=== PATIENT | male | born 1965 | race Caucasian/White ===

== ENCOUNTER 2017-06-15 10:19 | Outpatient (CLI) | payer MEDICARE, MEDICAID ==
--- NOTE | 2017-06-15 12:56 | Diagnostic Imaging Report ---
Exam: CT examination of the chest HISTORY: Pneumonia and shortness of breath. Total DLP equals 350 CTDI equals 0.0 Findings: Multiple contiguous thin section of the chest were obtained from thoracic outlet to the upper abdomen without the administration of contrast material therefore the study is limited The study demonstrates normal appearance of the great vessels of the neck. Adenopathy is difficult exclude due to lack of contrast material. Tracheostomy tube is noted There is evidence of for a right midlung infiltrate with superimposed pleural effusion. Left basilar atelectasis and small pleural effusion is present. Mediastinal structures midline the adenopathy is difficult to exclude due to lack of contrast material. Bony structures demonstrate no evidence for lytic or blastic changes IMPRESSION : Bilateral pneumonia superimposed effusions predominantly right-sided
== END 2017-06-15 10:49 ==
LOC: RAD 10:19
PROVIDERS: ATTEND General Practice
DX: J18.9 Pneumonia, unspecified organism (principal); J90 Pleural effusion, not elsewhere classified; Z93.0 Tracheostomy status
CPT/HCPCS: 71250-TC

== ENCOUNTER 2017-06-17 17:56 | Inpatient (IN) | payer MEDICARE, MEDICAID ==
--- NOTE | 2017-06-17 18:45 | ED Physician Chart ---
ED Chief Complaint/HPI - Patient Information Date Seen:: 06/17/17 Time Seen:: 18:45 Chief Complaint:: Cough History of Present Illness:: 51 yo male was brought from [facility] to ER for evaluation of cough and congestion with purulent sputum via tracheostomy for a few days. His CXR showed pneumonia and possible TB. Allergies:: Allergies Allergy/AdvReac Type Severity Reaction Status Date / Time No Known Allergies Allergy Verified 06/17/17 18:14 Vitals:: Vital Signs - 8 hr 06/17/17 18:14 Temp 98.8 F HR 85 RR 21 BP 124/73 O2 Sat % 94 ED Past Medical History - Past Medical History Past Medical History: DM, Other (ESPIRATORY FAILURE, SEPSIS, UTI, ABNORMAL POSTURE, MUSCLE WEAKNESS, DYSPHAGIA, CONGNITIVE COMMUNICATION DEFICIT, TRACHEOSTOMY, DYSPHAGIA, GASTROSTOMY, LEFT HEEL ULCER, ULCER RIGHT AND LEFT BUTTOCK, CEREBRAL PALSY, HYPOTHYROIDISM, INTELLECTUAL DISABILITY, HYPERLIPIDEMIA , BPH, NEUROMUSCULAR DYSFUNCTION OF BLADDER, OSTEOPOROSIS) Psychiatricy History: Depression Family Medical History - Family Member Mother History Unknown: Yes ED Septic Shock - <6hrs of presentation: Vital Signs: Vital Signs - 8 hr 06/17/17 18:14 Temp 98.8 F HR 85 RR 21 BP 124/73 O2 Sat % 94 ED Discharge Plan - Patient Disposition Admit/Discharge/Transfer: Acute Care w/in this hosp
[2017-06-17 19:03] LABS: % BASOPHILS 0.5 % (0.0-2.0); % EOSINOPHILS 4.5 % (0.0-5.0); % LYMPHOCYTES 29.1 % (20.0-50.0); % MONOCYTES 10.1 % (2.0-10.0); % NEUTROPHILS 55.8 % (40.0-80.0); EOSINOPHILE ABSOLUTE 0.4 Th/cmm (0.1-0.4); HEMATOCRIT 41.7 % (41.0-60); HEMOGLOBIN 14.1 gm/dL (12-16); LYMPHOCYTE ABSOLUTE 2.3 Th/cmm (1.5-3.0); MEAN CELL VOLUME 94.6 fl (80-99); MEAN CORPUSCULAR HGB CONC 33.9 pg (28.0-36.0); MEAN PLATELET VOLUME 6.8 fl; MONOCYTE ABSOLUTE 0.8 Th/cmm (0.3-1.0); NEUTROPHILE ABSOLUTE 4.4 Th/cmm (1.8-8.0); PLATELET COUNT 212 Th/cmm (150-400); RED BLOOD COUNT 4.41 Mil/cmm (4.30-5.70); RED CELL DISTRIBUTION WIDTH 13.1 % (11.5-20.0); WHITE BLOOD COUNT 7.9 Th/cmm (4.8-10.8)
[2017-06-17 19:27] LABS: ALB/GLOB RATIO 0.8 (1.0-1.8); ALBUMIN 3.5 gm/dL (4.2-5.5); ALKALINE PHOSPHATASE 179 U/L (34-104); BILIRUBIN,TOTAL 0.5 mg/dL (0.3-1.0); BUN - UREA NITROGEN 22 mg/dL (7-25); CALCIUM SERUM 9.5 mg/dL (8.6-10.3); CARBON DIOXIDE 30.6 mEq/L (21.0-31.0); CHLORIDE 106 mEq/L (98-107); CREATININE - SERUM 0.7 mg/dL (0.7-1.3); GFR AFRICAN-AMERICAN > 60.0 ml/min (>90); GFR NON AFRICAN-AMERICAN > 60.0 ml/min; GLUCOSE 107 mg/dL (70-105); POTASSIUM SERUM 3.6 mEq/L (3.5-5.1); SGOT 21 U/L (13-39); SGPT/ALT 21 U/L (7-52); SODIUM SERUM 137 mEq/L (136-145); TOTAL PROTEIN,SERUM 8.1 gm/dL (6.0-8.3)
[2017-06-17 20:02] LABS: pH 7.44 (7.35-7.45)
[2017-06-17 20:03] LABS: ALLEN TEST positive
[2017-06-17 20:16] LABS: URINE MICROSCOPIC INDICATED? YES; URINE SOURCE RANDOM
[2017-06-17 20:19] LABS: URINE BILIRUBIN NEGATIVE (NEGATIVE); URINE BLOOD SMALL (NEGATIVE); URINE GLUCOSE (UA) NEGATIVE (NEGATIVE); URINE KETONE NEGATIVE (NEGATIVE); URINE LEUKOCYTE ESTERASE LARGE (NEGATIVE); URINE NITRATE POSITIVE (NEGATIVE); URINE PH 7.5 (4.6 - 8.0); URINE PROTEIN TRACE mg/dL (NEGATIVE); URINE UROBILINOGEN 0.2 E.U./dL (0.2 - 1.0)
[2017-06-17 20:25] LABS: URINE CLARITY CLOUDY (CLEAR); URINE COLOR YELLOW
[2017-06-17] MEDS ORDERED: Sodium Chloride 0.9% 1,000 ML IV ONE (20:38)
[2017-06-17 20:45] LABS: URINE BACTERIA MODERATE /hpf (NONE SEEN); URINE EPITHELIAL CELLS NONE SEEN /lpf (FEW); URINE WBC 25-50 /hpf (0-5)
[2017-06-18] MEDS ORDERED: Piperacillin Sodium/Tazobact 3.375 gm Vial IV ONE ×2 (00:05→05:39)
[2017-06-18] MEDS ORDERED: Non-Formulary Item 1 EA (Acetaminophen [8 Hour] 650 MG) GT PRN (06:54)
[2017-06-18] MEDS ORDERED: LEVETIRACETAM GT SCH (07:00)
[2017-06-18] MEDS ORDERED: PHENYTOIN GT SCH (07:00)
[2017-06-18] MEDS ORDERED: Non-Formulary Item 1 EA (Ferrous Sulfate [Ferrous Sulfate] 7.5 ML) GT SCH (07:00)
[2017-06-18] MEDS ORDERED: ASCORBIC ACID 1000 MG GT SCH (09:00)
[2017-06-18] MEDS ORDERED: PROTEIN SUPPLEMENT GT SCH (09:00)
[2017-06-18] MEDS ORDERED: TOPIRAMATE GT SCH (09:00)
[2017-06-18] MEDS ORDERED: Ascorbic Acid 500 mg/5 mL UDC GT SCH (09:00)
[2017-06-18] MEDS ORDERED: TERAZOSIN HCL 4 MG GT SCH (09:00)
[2017-06-18] MEDS: Ferrous Sulfate 300 MG/5 ML UDC GT SCH ×2 (09:50→20:47)
[2017-06-18] MEDS: Levothyroxine 0.075 Mg Tab PO SCH (09:50)
[2017-06-18] MEDS: Levetiracetam 500 mg/5mL 5mL UDSyr *for ORAL USE ONLY GT SCH ×2 (09:51→20:48)
[2017-06-18] MEDS: POLYETHYLENE GLYCOL 3350 17 GM PACK PO SCH (09:51)
--- NOTE | 2017-06-18 11:07 | Diagnostic Imaging Report ---
Exam: Portable chest x-ray. HISTORY::. Findings: Portable examination of the chest at 1938 hours reviewed prior studies available comparison. The study demonstrates a atelectatic changes in left base mild infiltrate and pleural thickening cannot be excluded. Tracheostomy tube midline. Cervical vertebra demonstrates fusion .mediastinal structures midline the heart is not enlarged. Mild congestion present IMPRESSION: Mild congestion Left basilar atelectasis pleural thickening. Follow-up examination recommended
[2017-06-18] MEDS: Albuterol/Ipratropium Neb 3 ML AERS HHN SCH ×2 (11:39→18:50)
[2017-06-18] MEDS: Rifampin 300 mg Cap GT SCH (18:30)
[2017-06-19] MEDS: Albuterol/Ipratropium Neb 3 ML AERS HHN SCH ×4 (00:07→19:46)
--- NOTE | 2017-06-19 01:52 | History & Physical ---
ADMIT DATE: 06/17/2017 CHIEF COMPLAINT: Possible TB. HISTORY OF PRESENT ILLNESS: A 51-year-old male, presented from [facility] after a chest x-ray revealed a possible cavitary lesion as well as a positive PPD test. The patient has history of chronic respiratory failure and currently requires a trach and visits the hospital frequently for UTIs and pneumonia. Previous imaging has not revealed a mass, nodule or cavitary lesion previously, so the patient was transferred to the hospital. PAST MEDICAL HISTORY: Cerebral palsy, chronic respiratory failure, hypertension, dysphagia, anemia of chronic illness, hypothyroidism, generalized anxiety disorder, hypoalbuminemia, seizure disorder. FAMILY MEDICAL HISTORY: Unremarkable. SOCIAL HISTORY: No tobacco, alcohol, or drugs. The patient lives at [facility]. MEDICATIONS: Reviewed and reconciled. ALLERGIES: There were no known allergies. REVIEW OF SYSTEMS: Could not be obtained because the patient is unable to understand the questioning. PHYSICAL EXAMINATION: VITAL SIGNS: 97.6, 74, 20, 113/74, 99 pulse ox. GENERAL: NAD. HEENT: PERRLA, EOMI. Tracheostomy is in place. NECK: Supple. No JVD. CARDIOVASCULAR: Regular rate and rhythm. RESPIRATORY: Decreased breath sounds bilaterally with intermittent rhonchi. No wheezing or rales. ABDOMEN: Soft, nontender, and nondistended. Bowel sounds positive in all 4 quadrants. G-tube in place. EXTREMITIES: Muscle strength testing could not be performed because the patient is unable to understand questioning, however, there is normal muscle tone. SKIN: Skin is warm and dry. ASSESSMENT AND PLAN: 1. Aspiration pneumonia. 2. Positive PPD secondary to possible tuberculosis. 3. Chronic respiratory failure. 4. Dysphagia. 5. Seizure disorder. 6. Malnutrition. 7. Hypothyroidism. 8. Benign prostatic hypertrophy. 9. Urinary retention. Admit to telemetry. was consulted for Pulmonary. AFB and TB QuantiFERON were ordered. The patient was started on Zosyn. In the meantime, a CT chest was ordered. The home medications of clonazepam, ferrous sulfate, Keppra, Synthroid, phenytoin, terazosin and valproic acid had been restarted. The patient will be worked up for aspiration pneumonia versus possible tuberculosis. JOB# [id number]
--- NOTE | 2017-06-19 05:10 | Consultation ---
DATE OF CONSULTATION: This consult is for Dr. Conte. 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 Currently, he is on 40% of oxygen and as per RN, the patient is afebrile at this time and he has been started on Zosyn plus anti-TB medications. PAST MEDICAL HISTORY: As above. PAST SURGICAL HISTORY: He is status post trach and PEG. ALLERGIES: No known drug allergies. SOCIAL HISTORY: He is [facility] resident. Does not smoke, does not drink, does not do drugs obviously. FAMILY HISTORY: Not known. CURRENT MEDICATIONS: Zosyn, albuterol, rifampin, isoniazid, pyrazinamide, pyridoxine. REVIEW OF SYSTEMS: Unobtainable. PHYSICAL EXAMINATION: GENERAL: He is alert, awake, but he does not verbalize. VITAL SIGNS: The blood pressure is 123/71, respiratory rate is 20, heart rate is 72, temperature is 98.5. NECK: He has a trach. LUNGS: Bibasilar rhonchi. CARDIOVASCULAR: Heart regular rate and rhythm. No murmur, no rub, no gallop. ABDOMEN: Soft, nontender. PEG placed. EXTREMITIES: Contractures present and some healed decubitus present. LABORATORY DATA: His WBC 27.9, hemoglobin 14.1, hematocrit 41.7, and platelets are 212. Sodium is 137, potassium is 3.6, chloride is 106, bicarbonate 30.6, BUN 22, creatinine 0.7, and his alkaline phosphatase is 179. Blood gases, I believe, he is on 42% of oxygen. The pH is 7.44, pCO2 is 50, pO2 is 74, and bicarb is 31.4. The chest x-ray shows left lower lobe atelectasis and pleural thickening. ASSESSMENT AND PLAN: This is a gentleman who comes with congestion and cough, who is already being treated for TB. Probably, he is also suffering from acute pneumonia. We will continue with the antibiotics for now. We will continue with the G-tube feeding. We will continue with anti-TB medications. We might need to repeat a chest x-ray in a couple of days and will continue with supplemental oxygen, he is on TVAR and obviously he needs aspiration precautions and we will continue the supportive care and watch him closely. Thank you very much Dr. Velasquez for asking us to see the patient. Dr. Conte will follow the patient when he comes back. JOB# [id number]
[2017-06-19 06:31] LABS: % BASOPHILS 0.8 % (0.0-2.0); % EOSINOPHILS 8.3 % (0.0-5.0); % LYMPHOCYTES 22.4 % (20.0-50.0); % MONOCYTES 11.9 % (2.0-10.0); % NEUTROPHILS 56.6 % (40.0-80.0); BASOPHILE ABSOLUTE 0.1 Th/cumm (0-0.2); EOSINOPHILE ABSOLUTE 0.6 Th/cmm (0.1-0.4); HEMATOCRIT 39.9 % (41.0-60); HEMOGLOBIN 13.6 gm/dL (12-16); LYMPHOCYTE ABSOLUTE 1.5 Th/cmm (1.5-3.0); MEAN CELL VOLUME 94.9 fl (80-99); MEAN CORPUSCULAR HEMOGLOBIN 32.4 pg (26.0-30.0); MEAN CORPUSCULAR HGB CONC 34.1 pg (28.0-36.0); MEAN PLATELET VOLUME 7.3 fl; MONOCYTE ABSOLUTE 0.8 Th/cmm (0.3-1.0); NEUTROPHILE ABSOLUTE 3.9 Th/cmm (1.8-8.0); PLATELET COUNT 195 Th/cmm (150-400); RED BLOOD COUNT 4.21 Mil/cmm (4.30-5.70); RED CELL DISTRIBUTION WIDTH 13.1 % (11.5-20.0); WHITE BLOOD COUNT 6.9 Th/cmm (4.8-10.8)
[2017-06-19 06:36] LABS: ANION GAP 11.2 (7.0-16.0); BUN - UREA NITROGEN 20 mg/dL (7-25); CALCIUM SERUM 9.3 mg/dL (8.6-10.3); CARBON DIOXIDE 25.6 mEq/L (21.0-31.0); CHLORIDE 103 mEq/L (98-107); CREATININE - SERUM 0.8 mg/dL (0.7-1.3); GFR AFRICAN-AMERICAN > 60.0 ml/min (>90); GFR NON AFRICAN-AMERICAN > 60.0 ml/min; GLUCOSE 137 mg/dL (70-105); POTASSIUM SERUM 3.8 mEq/L (3.5-5.1); SODIUM SERUM 136 mEq/L (136-145)
[2017-06-19] MEDS: Levothyroxine 0.075 Mg Tab PO SCH (06:40)
[2017-06-19] MEDS: Ferrous Sulfate 300 MG/5 ML UDC GT SCH ×2 (10:11→20:45)
[2017-06-19] MEDS: Levetiracetam 500 mg/5mL 5mL UDSyr *for ORAL USE ONLY GT SCH ×2 (10:12→20:44)
[2017-06-19] MEDS: Rifampin 300 mg Cap GT SCH (10:13)
[2017-06-19] MEDS: POLYETHYLENE GLYCOL 3350 17 GM PACK PO SCH (10:13)
--- NOTE | 2017-06-19 17:05 | Consultation ---
Consult Note - Consult Note Service Date: 06/19/17 Referring Physician: Renata Velasquez Consult Note: PHYSICIAN Consultation Note: Date of Admission: 06/17/17 Purpose of Consultation: PPD positive na pneumoia, r/o tuberculosis. Chief Complaint: Patient CAYETANO AUSTIN was admitted to [facility] Telemetry with PNA. History of Present Illness: Patient is 51 year old male with histoy of respiratory failure on T bar oxygen had multiple admissions to different hospital for pneumonia. Recently, his PPD was checked and it came positive., CT scan of the chest also revealed pneumoia suspected of TB. Although, there was no cavily, no mass or nodule mentioned. Patient was transferred to the [facility] to r/o TB. Yesterday, I was informed of active TB and anti- TB medication stopped. Sputum for AFB x 3 ordered. Past Medical History: DM, Other (ESPIRATORY FAILURE, SEPSIS, UTI, ABNORMAL POSTURE, MUSCLE WEAKNESS, DYSPHAGIA, CONGNITIVE COMMUNICATION DEFICIT, TRACHEOSTOMY, DYSPHAGIA, GASTROSTOMY, LEFT HEEL ULCER, ULCER RIGHT AND LEFT BUTTOCK, CEREBRAL PALSY, HYPOTHYROIDISM, INTELLECTUAL DISABILITY, HYPERLIPIDEMIA , BPH, NEUROMUSCULAR DYSFUNCTION OF BLADDER, OSTEOPOROSIS). Allergies Allergy/AdvReac Type Severity Reaction Status Date / Time No Known Allergies Allergy Verified 06/17/17 18:14 Vital Signs Temp 97.5 F 06/19/17 04:00 Pulse 78 06/19/17 11:44 Resp 14 06/19/17 11:44 BP 98/60 06/19/17 10:15 Pulse Ox 93 06/19/17 11:44 Intake & Output 06/18/17 06/19/17 06/19/17 18:59 06:59 18:59 Intake Total 50 630 50 Balance 50 630 50 Weight (lbs) 98.883 kg Intake: Intake, IV Amount 50 150 50 Piperacillin Sodium/ 50 150 50 Tazobact 3.375 gm In Sodium Chloride 0.9% 50 ml @ 100 mls/hr IV Q6HR [facility] Rx#:[id number] Tube Feeding 480 Other: # Voids 4 # Bowel Movements 0 Stool Characteristics Soft Brown Laboratory Results - last 24 hr 06/19/17 06/19/17 06/19/17 06:01 06:01 06:01 WBC 6.9 RBC 4.21 L Hgb 13.6 Hct 39.9 L MCV 94.9 MCH 32.4 H MCHC Differential 34.1 RDW 13.1 Plt Count 195 MPV 7.3 Neutrophils % 56.6 Lymphocytes % 22.4 Monocytes % 11.9 H Eosinophils % 8.3 H Basophils % 0.8 Sodium 136 Potassium 3.8 Chloride 103 Carbon Dioxide 25.6 Anion Gap 11.2 BUN 20 Creatinine 0.8 Est GFR ( Amer) > 60.0 Est GFR (Non-Af Amer) > 60.0 BUN/Creatinine Ratio 25.0 Glucose 137 H Calcium 9.3 HIV 1&2 Antibody Screen NEGATIVE Home Medication Medication Instructions Recorded Type Acetaminophen [8 Hour] 650 mg GT Q6H PRN 06/17/17 History Albuterol/Ipratropium Neb [Duoneb 3 ml HHN Q6HR 06/17/17 History Neb] Ascorbic Acid [Vitamin C] 1,000 mg GT DAILY 06/17/17 History Chlorhexidine Gluconate 0.12% 0.12 % MM QSHIFT 06/17/17 History [Peridex] Clonazepam [Clonazepam*] 2 mg GT Q6H 06/17/17 History Docusate Sodium [Colace] 100 mg GT Q12H 06/17/17 History Ferrous Sulfate 7.5 ml GT Q12H 06/17/17 History Glucagon HCl 1 mg IJ PRN PRN 06/17/17 History Heparin Sodium,Porcine/Pf [Heparin 5,000 unit IJ Q12H 06/17/17 History Sod 5,000 Unit/ 0.5 ml] Insulin Aspart Sliding Scale 0 units SUBQ DAILY 06/17/17 History [NovoLOG INSULIN SLIDING SCALE] Levetiracetam [Keppra] 200 mg GT Q12H 06/17/17 History Levothyroxine [Synthroid] 0.075 mg PO QDAC 06/17/17 History Magnesium Oxide [Mgo] 400 mg GT DAILY 06/17/17 History Phenytoin 135 mg GT Q8H 06/17/17 History Phosphorus/Potassium/Sodium 3 pkg GT Q12H 06/17/17 History Polyethylene Glycol 3350 [Miralax] 17 gm PO DAILY 06/17/17 History Protein Supplement [Procel] 30 ml GT BID 06/17/17 History Sennosides A and B [Senna] 8.6 mg GT Q12H 06/17/17 History Terazosin HCl 4 mg GT DAILY 06/17/17 History Topiramate 250 mg GT BID 06/17/17 History Valproic Acid [Depakene] 500 mg GT Q8H 06/17/17 History Current Medications Generic Name Dose Route Start Last Admin Trade Name Freq PRN Reason Stop Dose Admin Acetaminophen 650 mg 06/18/17 08:37 Tylenol 650mg/20.3ml Suspension GT 08/17/17 08:36 Q6H PRN TEMP > 100, OR MILD PAIN Albuterol/Ipratropium 3 ml 06/18/17 12:00 06/19/17 11:41 Duoneb Neb HHN 08/17/17 11:59 3 ml Q6HR CLAUDIO Administration Ascorbic Acid 1,000 mg 06/18/17 10:55 06/19/17 10:10 Vitamin C PO 08/17/17 10:54 1,000 mg DAILY CLAUDIO Administration Ethambutol HCl 1,600 mg 06/18/17 16:45 06/19/17 10:11 Myambutol GT 08/17/17 16:44 1,600 mg DAILY CLAUDIO Administration Ferrous Sulfate 300 mg 06/18/17 09:00 06/19/17 10:11 Iron GT 08/17/17 08:59 300 mg Q12HR CLAUDIO Administration Heparin Sodium (Porcine) 5,000 units 06/18/17 09:00 06/19/17 10:11 Heparin SUBQ 08/17/17 08:59 5,000 units Q12HR CLAUDIO Administration Piperacillin Sod/Tazobactam 50 mls @ 100 mls/hr 06/18/17 00:00 06/19/17 16:48 Sod 3.375 gm/ Sodium Chloride IV 08/17/17 00:00 Infused Q6HR CLAUDIO Infusion Isoniazid 300 mg 06/18/17 16:45 06/19/17 10:12 Inh GT 08/17/17 16:44 300 mg DAILY CLAUDIO Administration Levetiracetam 200 mg 06/18/17 09:00 06/19/17 10:12 Keppra GT 08/17/17 08:59 200 mg Q12HR CLAUDIO Administration Levothyroxine Sodium 0.075 mg 06/18/17 07:30 06/19/17 06:40 Synthroid PO 08/17/17 07:29 0.075 mg QDAC CLAUDIO Administration Magnesium Oxide 400 mg 06/18/17 09:00 06/19/17 10:13 Mag-Oxide GT 08/17/17 08:59 400 mg DAILY CLAUDIO Administration Miscellaneous 2 mg 06/18/17 07:00 Clonazepam [Clonazepam*] GT 08/17/17 06:59 Q6H CLAUDIO Mupirocin 1 appl 06/19/17 17:00 06/19/17 16:37 Bactroban Oint NS 06/24/17 09:01 1 appl BID CLAUDIO Administration Phenytoin 125 mg 06/18/17 13:00 06/19/17 13:01 Dilantin GT 08/17/17 12:59 125 mg Q8HR CLAUDIO Administration Polyethylene Glycol 17 gm 06/18/17 09:00 06/19/17 10:13 Miralax PO 08/17/17 08:59 17 gm DAILY CLAUDIO Administration Pyrazinamide 2,000 mg 06/18/17 16:45 06/19/17 10:13 Pza GT 08/17/17 16:44 2,000 mg DAILY CLAUDIO Administration Pyridoxine HCl 50 mg 06/18/17 16:47 06/19/17 10:13 Vitamin B6 GT 08/17/17 16:44 50 mg DAILY CLAUDIO Administration Rifampin 600 mg 06/18/17 16:45 06/19/17 10:13 Rifadin GT 08/17/17 16:44 600 mg DAILY CLAUDIO Administration Senna 8.6 mg 06/18/17 07:00 06/19/17 06:40 Senna GT 08/17/17 06:59 8.6 mg Q12H CLAUDIO Administration Terazosin HCl 4 mg 06/18/17 09:00 06/19/17 10:15 Hytrin GT 08/17/17 08:59 Not Given DAILY CLAUDIO Topiramate 250 mg 06/18/17 09:00 06/19/17 16:37 Topamax GT 08/17/17 08:59 250 mg BID CLAUDIO Administration Valproate Sodium 500 mg 06/18/17 07:00 06/19/17 16:37 Depakene GT 08/17/17 06:59 500 mg Q8H CLAUDIO Administration Protocol Review of Systems: A 12 point ROS was reviewed with the pertinent positive and negatives noted in the HPI. Social History Smoking Status Unknown if ever smoked Family Medical History noncontributory. Physical Exam: General: Comfortable, not in distress. HEENT: Oral cavity, moist pink tongue, eyes pallor, no icterus. Neck: Supple, trach site is clear. Cardio: S1, S2 regular, no murmur. Respiratory: crackles present. Abdominal: Soft NT ND. PEG is ok. Genital/Urinary: Extremities: NCCE Neurological: AAox3. Assessment: 1. 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 2. Pneumonia, Right. 3. Respiratory insufficiency, on T - bar. 4. Dysphasia. 5. DM2 6. Cerebral palsy. Plan: Continue TB work up. DC anti TB meds at this time. Continue zosyn. Thank you, Dr Velasquez for involving me in taking care of this patient. Signed, Triston Call M.D. [id number]
[2017-06-20] MEDS: Albuterol/Ipratropium Neb 3 ML AERS HHN SCH ×4 (00:33→19:12)
[2017-06-20 05:59] LABS: % BASOPHILS 0.7 % (0.0-2.0); % EOSINOPHILS 4.3 % (0.0-5.0); % LYMPHOCYTES 21.1 % (20.0-50.0); % MONOCYTES 11.3 % (2.0-10.0); % NEUTROPHILS 62.6 % (40.0-80.0); BASOPHILE ABSOLUTE 0.1 Th/cumm (0-0.2); EOSINOPHILE ABSOLUTE 0.4 Th/cmm (0.1-0.4); HEMOGLOBIN 13.7 gm/dL (12-16); MEAN CELL VOLUME 94.7 fl (80-99); MEAN CORPUSCULAR HEMOGLOBIN 32.5 pg (26.0-30.0); MEAN CORPUSCULAR HGB CONC 34.3 pg (28.0-36.0); MEAN PLATELET VOLUME 6.8 fl; MONOCYTE ABSOLUTE 1.1 Th/cmm (0.3-1.0); PLATELET COUNT 206 Th/cmm (150-400); RED BLOOD COUNT 4.22 Mil/cmm (4.30-5.70); RED CELL DISTRIBUTION WIDTH 13.2 % (11.5-20.0)
[2017-06-20 06:01] LABS: WHITE BLOOD COUNT 9.6 Th/cmm (4.8-10.8)
[2017-06-20 06:08] LABS: ANION GAP 10.7 (7.0-16.0); BUN - UREA NITROGEN 18 mg/dL (7-25); CALCIUM SERUM 9.2 mg/dL (8.6-10.3); CARBON DIOXIDE 24.1 mEq/L (21.0-31.0); CHLORIDE 107 mEq/L (98-107); CREATININE - SERUM 0.9 mg/dL (0.7-1.3); GFR AFRICAN-AMERICAN > 60.0 ml/min (>90); GFR NON AFRICAN-AMERICAN > 60.0 ml/min; GLUCOSE 128 mg/dL (70-105); POTASSIUM SERUM 3.8 mEq/L (3.5-5.1); SODIUM SERUM 138 mEq/L (136-145)
[2017-06-20] MEDS: Levothyroxine 0.075 Mg Tab PO SCH (06:47)
[2017-06-20] MEDS: Levetiracetam 500 mg/5mL 5mL UDSyr *for ORAL USE ONLY GT SCH ×2 (08:07→22:27)
[2017-06-20] MEDS: Ferrous Sulfate 300 MG/5 ML UDC GT SCH ×2 (08:08→22:27)
[2017-06-20] MEDS: POLYETHYLENE GLYCOL 3350 17 GM PACK PO SCH (08:13)
--- NOTE | 2017-06-20 12:04 | Diagnostic Imaging Report ---
CT scan of the chest without intravenous contrast HISTORY: Tuberculosis Total DLP equals 399 CTDI equals 11.7 Axial sections were obtained from a level above the clavicles down to level below the diaphragm. The exam is compared with the prior study of June 15, 2017. The heart size is generous. Normal-sized lymph nodes are seen within the mediastinum. Evaluation of the hilar structures is limited due to the absence of intravenous contrast. No significant change in bilateral predominantly lower lobe interstitial infiltrates and pleural thickening. Findings suggest probable chronic change. Clinical correlation is needed. No free pleural fluid is seen. Limited sections below the diaphragm demonstrate an atrophic left kidney associated with multiple calculi. IMPRESSION: 1. No significant change compared to a prior examination of June 15, 2017. 2. Bilateral predominantly lower lobe interstitial lung changes along with pleural thickening. The overall appearance suggests a chronic etiology. Clinical correlation is needed. 3. Atrophic left kidney with multiple calculi
[2017-06-20] MEDS ORDERED: Probiotic Screen MC PRN (12:30)
--- NOTE | 2017-06-20 13:57 | Infectious Disease Prog Note ---
Infectious Disease Subjective - Review of Systems Service Date: 06/20/17 Subjective: no new change, no fever. Infectious Disease Objective - Results Result Diagrams: 06/20/17 05:45 06/20/17 05:45 Recent Labs: Laboratory Last Values WBC 9.6 Th/cmm (4.8-10.8) D 06/20/17 05:45 RBC 4.22 Mil/cmm (4.30-5.70) L 06/20/17 05:45 Hgb 13.7 gm/dL (12-16) 06/20/17 05:45 Hct 40.0 % (41.0-60) L 06/20/17 05:45 MCV 94.7 fl (80-99) 06/20/17 05:45 MCH 32.5 pg (26.0-30.0) H 06/20/17 05:45 MCHC Differential 34.3 pg (28.0-36.0) 06/20/17 05:45 RDW 13.2 % (11.5-20.0) 06/20/17 05:45 Plt Count 206 Th/cmm (150-400) 06/20/17 05:45 MPV 6.8 fl 06/20/17 05:45 Neutrophils % 62.6 % (40.0-80.0) 06/20/17 05:45 Lymphocytes % 21.1 % (20.0-50.0) 06/20/17 05:45 Monocytes % 11.3 % (2.0-10.0) H 06/20/17 05:45 Eosinophils % 4.3 % (0.0-5.0) 06/20/17 05:45 Basophils % 0.7 % (0.0-2.0) 06/20/17 05:45 Specimen Source arteial 06/17/17 18:47 Sample Site right radial 06/17/17 18:47 pH 7.44 (7.35-7.45) 06/17/17 18:47 pCO2 50.0 mmHg (35.0-45.0) H 06/17/17 18:47 pO2 74.0 mmHg (80.0-100.0) L 06/17/17 18:47 HCO3 31.4 mEq/L (20.0-26.0) H 06/17/17 18:47 Base Excess 8.4 mEq/L (-3.0-3.0) H 06/17/17 18:47 O2 Saturation 95.0 % (92.0-100.0) 06/17/17 18:47 Jaime Test positive 06/17/17 18:47 Vent Rate na 06/17/17 18:47 Inspired O2 42 06/17/17 18:47 Tidal Volume na 06/17/17 18:47 PEEP na 06/17/17 18:47 Pressure (ins/psv/peep) na 06/17/17 18:47 Critical Value sc 06/17/17 18:47 Sodium 138 mEq/L (136-145) 06/20/17 05:45 Potassium 3.8 mEq/L (3.5-5.1) 06/20/17 05:45 Chloride 107 mEq/L (98-107) 06/20/17 05:45 Carbon Dioxide 24.1 mEq/L (21.0-31.0) 06/20/17 05:45 Anion Gap 10.7 (7.0-16.0) 06/20/17 05:45 BUN 18 mg/dL (7-25) 06/20/17 05:45 Creatinine 0.9 mg/dL (0.7-1.3) 06/20/17 05:45 Est GFR ( Amer) > 60.0 ml/min (>90) 06/20/17 05:45 Est GFR (Non-Af Amer) > 60.0 ml/min 06/20/17 05:45 BUN/Creatinine Ratio 20.0 06/20/17 05:45 Glucose 128 mg/dL (70-105) H 06/20/17 05:45 POC Glucose 154 MG/DL (70 - 105) H 06/18/17 06:33 Calcium 9.2 mg/dL (8.6-10.3) 06/20/17 05:45 Total Bilirubin 0.5 mg/dL (0.3-1.0) 06/17/17 18:51 AST 21 U/L (13-39) 06/17/17 18:51 ALT 21 U/L (7-52) 06/17/17 18:51 Alkaline Phosphatase 179 U/L (34-104) H 06/17/17 18:51 Total Protein 8.1 gm/dL (6.0-8.3) 06/17/17 18:51 Albumin 3.5 gm/dL (4.2-5.5) L 06/17/17 18:51 Globulin 4.6 gm/dL 06/17/17 18:51 Albumin/Globulin Ratio 0.8 (1.0-1.8) L 06/17/17 18:51 Urine Source RANDOM 06/17/17 20:05 Urine Color YELLOW 06/17/17 20:05 Urine Clarity CLOUDY (CLEAR) 06/17/17 20:05 Urine pH 7.5 (4.6 - 8.0) 06/17/17 20:05 Ur Specific [place] 1.010 (1.005-1.030) 06/17/17 20:05 Urine Protein TRACE mg/dL (NEGATIVE) 06/17/17 20:05 Urine Glucose (UA) NEGATIVE mg/dL (NEGATIVE) 06/17/17 20:05 Urine Ketones NEGATIVE mg/dL (NEGATIVE) 06/17/17 20:05 Urine Blood SMALL (NEGATIVE) H 06/17/17 20:05 Urine Nitrate POSITIVE (NEGATIVE) H 06/17/17 20:05 Urine Bilirubin NEGATIVE (NEGATIVE) 06/17/17 20:05 Urine Urobilinogen 0.2 E.U./dL (0.2 - 1.0) 06/17/17 20:05 Ur Leukocyte Esterase LARGE (NEGATIVE) H 06/17/17 20:05 Urine RBC 2-5 /hpf (0-5) H 06/17/17 20:05 Urine WBC 25-50 /hpf (0-5) H 06/17/17 20:05 Ur Epithelial Cells NONE SEEN /lpf (FEW) 06/17/17 20:05 Urine Bacteria MODERATE /hpf (NONE SEEN) H 06/17/17 20:05 HIV 1&2 Antibody Screen NEGATIVE (NEG) 06/19/17 06:01 - Physical Exam Vitals and I&O: Vital Signs Temp 97.7 F 06/20/17 03:30 Pulse 78 06/20/17 11:53 Resp 14 06/20/17 11:53 BP 118/76 06/20/17 03:30 Pulse Ox 98 06/20/17 11:53 Intake & Output 06/19/17 06/20/17 06/20/17 18:59 06:59 18:59 Intake Total 100 760 Balance 100 760 Weight (lbs) 98.883 kg 98.883 kg Intake: Intake, IV Amount 100 100 Piperacillin Sodium/ 100 100 Tazobact 3.375 gm In Sodium Chloride 0.9% 50 ml @ 100 mls/hr IV Q6HR [facility] Rx#:[id number] Tube Feeding 660 Other: # Voids 1 # Bowel Movements 1 Active Medications: Current Medications Acetaminophen (Tylenol 650mg/20.3ml Suspension) 650 mg GT Q6H PRN PRN Reason: TEMP > 100, OR MILD PAIN Stop: 08/17/17 08:36 Albuterol/Ipratropium (Duoneb Neb) 3 ml HHN Q6HR [facility] Stop: 08/17/17 11:59 Last Admin: 06/20/17 11:49 Dose: 3 ml Ascorbic Acid (Vitamin C) 1,000 mg PO DAILY [facility] Stop: 08/17/17 10:54 Last Admin: 06/20/17 11:09 Dose: 1,000 mg Clonazepam (Klonopin) 2 mg GT Q6H [facility] Stop: 08/17/17 06:59 Last Admin: 06/20/17 11:35 Dose: 2 mg Ferrous Sulfate (Iron) 300 mg GT Q12HR [facility] Stop: 08/17/17 08:59 Last Admin: 06/20/17 08:08 Dose: 300 mg Heparin Sodium (Porcine) (Heparin) 5,000 units SUBQ Q12HR [facility] Stop: 08/17/17 08:59 Last Admin: 06/20/17 08:13 Dose: 5,000 units Piperacillin Sod/Tazobactam (Sod 3.375 gm/ Sodium Chloride) 50 mls @ 100 mls/ hr IV Q6HR [facility] Stop: 08/17/17 00:00 Last Admin: 06/20/17 11:34 Dose: 100 mls/hr Lactobacillus Rhamnosus (Culturelle 15b) 1 each PO DAILY [facility] Stop: 08/19/17 12:59 Levetiracetam (Keppra) 200 mg GT Q12HR [facility] Stop: 08/17/17 08:59 Last Admin: 06/20/17 08:07 Dose: 200 mg Levothyroxine Sodium (Synthroid) 0.075 mg PO QDAC [facility] Stop: 08/17/17 07:29 Last Admin: 06/20/17 06:47 Dose: 0.075 mg Magnesium Oxide (Mag-Oxide) 400 mg GT DAILY [facility] Stop: 08/17/17 08:59 Last Admin: 06/20/17 08:11 Dose: 400 mg Miscellaneous (Probiotic Screen) 1 ea MC PRN PRN PRN Reason: PROTOCOL Stop: 08/19/17 12:29 Mupirocin (Bactroban Oint) 1 appl NS BID [facility] Stop: 06/24/17 09:01 Last Admin: 06/20/17 08:07 Dose: 1 appl Phenytoin (Dilantin) 125 mg GT Q8HR [facility] Stop: 08/17/17 12:59 Last Admin: 06/20/17 13:36 Dose: Not Given Polyethylene Glycol (Miralax) 17 gm PO DAILY [facility] Stop: 08/17/17 08:59 Last Admin: 06/20/17 08:13 Dose: 17 gm Senna (Senna) 8.6 mg GT Q12H [facility] Stop: 08/17/17 06:59 Last Admin: 06/20/17 06:47 Dose: 8.6 mg Terazosin HCl (Hytrin) 4 mg GT DAILY [facility] Stop: 08/17/17 08:59 Last Admin: 06/20/17 08:12 Dose: Not Given Topiramate (Topamax) 250 mg GT BID [facility] Stop: 08/17/17 08:59 Last Admin: 06/20/17 08:10 Dose: 250 mg Valproate Sodium (Depakene) 500 mg GT Q8H [facility] PRN Reason: Protocol Stop: 08/17/17 06:59 Last Admin: 06/20/17 08:09 Dose: 500 mg General: no acute distress, well developed, well nourished HEENT: atraumatic, normocephalic, PERRLA Neck: supple, tracheostomy, no thyromegaly Cardiovascular: S1S2, regular Lungs: clear to percussion, crackles Abdomen: soft, bowel sounds, no tender, no distended, no mass Extremities: no cyanosis, no clubbing, no edema Neurological: awake, alert, oriented Skin: intact Infectious Disease Assmt/Plan - Problem List Patient Problems: All Active Problems COUGH AND CONGESTION WITH PNEUMONIA (Acute) - Assessment Assessment: 1. 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 2. Pneumonia, Right. 3. Respiratory insufficiency, on T - bar. 4. Dysphasia. 5. DM2 6. Cerebral palsy. - Plan Plan: Continue TB work up. Continue zosyn. Nutritional Asmnt/Malnutr-PDOC - Dietary Evaluation Malnutrition Findings (Please click <Entered> for more info): Nutritional Asmnt/Malnutrition Start: 06/18/17 12: 16 Text: Status: Complete Freq: Document 06/18/17 12:16 [email or web address] (Rec: 06/18/17 12:31 MMULGAYLE HERNANDEZ- [email or web address]) Nutritional Asmnt/Malnutrition Patient General Information Nutritional Screening High Risk Diagnosis Pneumonia Pertinent Medical Hx/Surgical Hx DM, epilepsy, CP, hypothyroidism, anemia, intellectual disabilities, pressure ulcer buttocks, dysphagia, BPH, GERD Subjective Information Patient was admitted from SNF; has trach on O2/cool aerosol. 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 Per nursing notes, patient aphasic. G Tube present, started on Tube feeding this morning. Current Diet Order/ Nutrition Support Isosource 1.5 at 60 ml/hr x 20 hours; 1200ml volume, 1800kcal, 81 gm pro Patient / S.O Not Indicated Pertinent Medications vitamin C, iron, Synthroid, Mag-oxide, dilantin, miralax, senna Pertinent Labs Albumin 3.5 Nutritional Hx/Data Height 1.7 m Height (Calculated Centimeters) 170.2 Current Weight (lbs) 99.79 kg Weight (Calculated Kilograms) 99.8 Weight (Calculated Grams) 68064.3 [place] Body Weight 148 % [place] Body Weight 148 Body Mass Index (BMI) 34.4 Recent Weight Change No Weight Status Obese GI Symptoms GI Symptoms Constipation Last BM None noted since admission Difficult in: Chewing Swallowing Food Allergies No Cultural/Ethnic/Shinto Belief None indicated Usual diet at home Tube feeding via Gtube Skin Integrity/Comment: Peter Up Estimated Nutritional Goals BEE in Kcals: Adj wt of IBW Calories/Kcals/Kg 75.4 kg Adj weight (25-30 kcal /kg) Kcals Calculated ~7227-0065 kcal/day Protein: Adj wt of IBW Protein g/k-1.2 gm/kg using Adj weight Protein Calculated ~75-90 gm/day Fluid: ml ~7828-6822 ml/day (1 ml/kcal) Nutritional Problem 1. Problem Problem Altered GI Function related to Etiology unknown cause aeb Signs/Symptoms: no bowel movement since admission and need for GI motility medications Intervention/Recommendation Comments 1. Continue current tube feeding regimen as tolerated by patient. 2. Continue GI motility medications per MD to aid with constipation. Current tube feeding. 3. If constipation not resolved, consider modifying tube feeding formula to Fibersource due to increased fiber content. 75ml/hr x 20hours. 4. DIscontinue Oral supplement of Novasource Renal from diet order. Expected Outcomes/Goals Expected Outcomes/Goals Tube feeding meets nutrient needs with tolerance, weight stable or trends toward ideal body weight, nutrition related labs WNL. F/U MR
[2017-06-20] MEDS: Lactobacillus Rhamnosus GG 15 Billion CFU CAP.SPRINK PO SCH (15:28)
--- NOTE | 2017-06-20 23:55 | General Progress Note ---
Subjective - Review of Systems Service Date: 06/20/17 Events since last encounter: COntinue zosyn. Pulm and ID are following. TB meds on hold due to low likelihood to him having TB Subjective: The patient was seen, evaluated and responds to stimuli. No s/s of pain or distress Objective - Results Result Diagrams: 06/20/17 05:45 06/20/17 05:45 Recent Labs: Laboratory Last Values WBC 9.6 Th/cmm (4.8-10.8) D 06/20/17 05:45 RBC 4.22 Mil/cmm (4.30-5.70) L 06/20/17 05:45 Hgb 13.7 gm/dL (12-16) 06/20/17 05:45 Hct 40.0 % (41.0-60) L 06/20/17 05:45 MCV 94.7 fl (80-99) 06/20/17 05:45 MCH 32.5 pg (26.0-30.0) H 06/20/17 05:45 MCHC Differential 34.3 pg (28.0-36.0) 06/20/17 05:45 RDW 13.2 % (11.5-20.0) 06/20/17 05:45 Plt Count 206 Th/cmm (150-400) 06/20/17 05:45 MPV 6.8 fl 06/20/17 05:45 Neutrophils % 62.6 % (40.0-80.0) 06/20/17 05:45 Lymphocytes % 21.1 % (20.0-50.0) 06/20/17 05:45 Monocytes % 11.3 % (2.0-10.0) H 06/20/17 05:45 Eosinophils % 4.3 % (0.0-5.0) 06/20/17 05:45 Basophils % 0.7 % (0.0-2.0) 06/20/17 05:45 Specimen Source arteial 06/17/17 18:47 Sample Site right radial 06/17/17 18:47 pH 7.44 (7.35-7.45) 06/17/17 18:47 pCO2 50.0 mmHg (35.0-45.0) H 06/17/17 18:47 pO2 74.0 mmHg (80.0-100.0) L 06/17/17 18:47 HCO3 31.4 mEq/L (20.0-26.0) H 06/17/17 18:47 Base Excess 8.4 mEq/L (-3.0-3.0) H 06/17/17 18:47 O2 Saturation 95.0 % (92.0-100.0) 06/17/17 18:47 Jaime Test positive 06/17/17 18:47 Vent Rate na 06/17/17 18:47 Inspired O2 42 06/17/17 18:47 Tidal Volume na 06/17/17 18:47 PEEP na 06/17/17 18:47 Pressure (ins/psv/peep) na 06/17/17 18:47 Critical Value sc 06/17/17 18:47 Sodium 138 mEq/L (136-145) 06/20/17 05:45 Potassium 3.8 mEq/L (3.5-5.1) 06/20/17 05:45 Chloride 107 mEq/L (98-107) 06/20/17 05:45 Carbon Dioxide 24.1 mEq/L (21.0-31.0) 06/20/17 05:45 Anion Gap 10.7 (7.0-16.0) 06/20/17 05:45 BUN 18 mg/dL (7-25) 06/20/17 05:45 Creatinine 0.9 mg/dL (0.7-1.3) 06/20/17 05:45 Est GFR ( Amer) > 60.0 ml/min (>90) 06/20/17 05:45 Est GFR (Non-Af Amer) > 60.0 ml/min 06/20/17 05:45 BUN/Creatinine Ratio 20.0 06/20/17 05:45 Glucose 128 mg/dL (70-105) H 06/20/17 05:45 POC Glucose 154 MG/DL (70 - 105) H 06/18/17 06:33 Calcium 9.2 mg/dL (8.6-10.3) 06/20/17 05:45 Total Bilirubin 0.5 mg/dL (0.3-1.0) 06/17/17 18:51 AST 21 U/L (13-39) 06/17/17 18:51 ALT 21 U/L (7-52) 06/17/17 18:51 Alkaline Phosphatase 179 U/L (34-104) H 06/17/17 18:51 Total Protein 8.1 gm/dL (6.0-8.3) 06/17/17 18:51 Albumin 3.5 gm/dL (4.2-5.5) L 06/17/17 18:51 Globulin 4.6 gm/dL 06/17/17 18:51 Albumin/Globulin Ratio 0.8 (1.0-1.8) L 06/17/17 18:51 Urine Source RANDOM 06/17/17 20:05 Urine Color YELLOW 06/17/17 20:05 Urine Clarity CLOUDY (CLEAR) 06/17/17 20:05 Urine pH 7.5 (4.6 - 8.0) 06/17/17 20:05 Ur Specific [place] 1.010 (1.005-1.030) 06/17/17 20:05 Urine Protein TRACE mg/dL (NEGATIVE) 06/17/17 20:05 Urine Glucose (UA) NEGATIVE mg/dL (NEGATIVE) 06/17/17 20:05 Urine Ketones NEGATIVE mg/dL (NEGATIVE) 06/17/17 20:05 Urine Blood SMALL (NEGATIVE) H 06/17/17 20:05 Urine Nitrate POSITIVE (NEGATIVE) H 06/17/17 20:05 Urine Bilirubin NEGATIVE (NEGATIVE) 06/17/17 20:05 Urine Urobilinogen 0.2 E.U./dL (0.2 - 1.0) 06/17/17 20:05 Ur Leukocyte Esterase LARGE (NEGATIVE) H 06/17/17 20:05 Urine RBC 2-5 /hpf (0-5) H 06/17/17 20:05 Urine WBC 25-50 /hpf (0-5) H 06/17/17 20:05 Ur Epithelial Cells NONE SEEN /lpf (FEW) 06/17/17 20:05 Urine Bacteria MODERATE /hpf (NONE SEEN) H 06/17/17 20:05 HIV 1&2 Antibody Screen NEGATIVE (NEG) 06/19/17 06:01 - Physical Exam Vitals and I&O: Vital Signs Temp 97.6 F 06/20/17 20:00 Pulse 74 06/20/17 20:00 Resp 18 06/20/17 20:00 BP 112/67 02/19/18 20:00 Pulse Ox 95 06/20/17 20:00 Intake & Output 06/20/17 06/20/17 06/21/17 06:59 18:59 06:59 Intake Total 760 50 Balance 760 50 Weight (lbs) 98.883 kg 98.883 kg 98.883 kg Intake: Intake, IV Amount 100 50 Piperacillin Sodium/ 100 50 Tazobact 3.375 gm In Sodium Chloride 0.9% 50 ml @ 100 mls/hr IV Q6HR [facility] Rx#:[id number] Tube Feeding 660 Other: # Voids 1 2 # Bowel Movements 1 1 Active Medications: Current Medications Acetaminophen (Tylenol 650mg/20.3ml Suspension) 650 mg GT Q6H PRN PRN Reason: TEMP > 100, OR MILD PAIN Stop: 08/17/17 08:36 Albuterol/Ipratropium (Duoneb Neb) 3 ml HHN Q6HR [facility] Stop: 08/17/17 11:59 Last Admin: 06/20/17 19:12 Dose: 3 ml Ascorbic Acid (Vitamin C) 1,000 mg PO DAILY [facility] Stop: 08/17/17 10:54 Last Admin: 06/20/17 11:09 Dose: 1,000 mg Clonazepam (Klonopin) 2 mg GT Q6H [facility] Stop: 08/17/17 06:59 Last Admin: 06/20/17 18:34 Dose: 2 mg Ferrous Sulfate (Iron) 300 mg GT Q12HR [facility] Stop: 08/17/17 08:59 Last Admin: 06/20/17 22:27 Dose: 300 mg Heparin Sodium (Porcine) (Heparin) 5,000 units SUBQ Q12HR [facility] Stop: 08/17/17 08:59 Last Admin: 06/20/17 22:27 Dose: 5,000 units Piperacillin Sod/Tazobactam (Sod 3.375 gm/ Sodium Chloride) 50 mls @ 100 mls/ hr IV Q6HR [facility] Stop: 08/17/17 00:00 Last Admin: 06/20/17 18:34 Dose: 100 mls/hr Lactobacillus Rhamnosus (Culturelle 15b) 1 each PO DAILY [facility] Stop: 08/19/17 12:59 Last Admin: 06/20/17 15:28 Dose: 1 each Levetiracetam (Keppra) 200 mg GT Q12HR [facility] Stop: 08/17/17 08:59 Last Admin: 06/20/17 22:27 Dose: 200 mg Levothyroxine Sodium (Synthroid) 0.075 mg PO QDAC [facility] Stop: 08/17/17 07:29 Last Admin: 06/20/17 06:47 Dose: 0.075 mg Magnesium Oxide (Mag-Oxide) 400 mg GT DAILY [facility] Stop: 08/17/17 08:59 Last Admin: 06/20/17 08:11 Dose: 400 mg Miscellaneous (Probiotic Screen) 1 ea MC PRN PRN PRN Reason: PROTOCOL Stop: 08/19/17 12:29 Mupirocin (Bactroban Oint) 1 appl NS BID [facility] Stop: 06/24/17 09:01 Last Admin: 06/20/17 18:33 Dose: 1 appl Phenytoin (Dilantin) 125 mg GT Q8HR [facility] Stop: 08/17/17 12:59 Last Admin: 06/20/17 22:26 Dose: 125 mg Polyethylene Glycol (Miralax) 17 gm PO DAILY [facility] Stop: 08/17/17 08:59 Last Admin: 06/20/17 08:13 Dose: 17 gm Senna (Senna) 8.6 mg GT Q12H [facility] Stop: 06/21/17 07:00 Last Admin: 06/20/17 18:37 Dose: 8.6 mg Senna (Senna) 8.6 mg GT Q12H [facility] Stop: 08/20/17 08:59 Terazosin HCl (Hytrin) 4 mg GT DAILY [facility] Stop: 08/17/17 08:59 Last Admin: 06/20/17 08:12 Dose: Not Given Topiramate (Topamax) 250 mg GT BID [facility] Stop: 08/17/17 08:59 Last Admin: 06/20/17 18:34 Dose: 250 mg Valproate Sodium (Depakene) 500 mg GT Q8H [facility] PRN Reason: Protocol Stop: 08/17/17 06:59 Last Admin: 06/20/17 15:29 Dose: 500 mg General: Alert, No acute distress HEENT: Atraumatic, EOMI Neck: Other (trasch in place) Cardiovascular: Normal S1, Normal S2 Lungs: Other (decreased breath sounds) Abdomen: Bowel sounds, Soft Extremities: Clubbing Neurological: Normal tone Assessment/Plan - Problem List Patient Problems: All Active Problems COUGH AND CONGESTION WITH PNEUMONIA (Acute) - Assessment Assessment: 1. 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 2. Pneumonia, Right. 3. Respiratory insufficiency, on T - bar. 4. Dysphasia. 5. DM2 6. Cerebral palsy. - Plan Plan: TB meds on hold. Possible latent tb, per ID. COntinue zosyn for tx of the asp pna. Continue suopp Nutritional Asmnt/Malnutr-PDOC - Dietary Evaluation Malnutrition Findings (Please click <Entered> for more info): Nutritional Asmnt/Malnutrition Start: 06/18/17 12: 16 Text: Status: Complete Freq: Document 06/18/17 12:16 MMULGAYLE (Rec: 06/18/17 12:31 MMULHERQuin HERNANDEZ- FN) Nutritional Asmnt/Malnutrition Patient General Information Nutritional Screening High Risk Diagnosis Pneumonia Pertinent Medical Hx/Surgical Hx DM, epilepsy, CP, hypothyroidism, anemia, intellectual disabilities, pressure ulcer buttocks, dysphagia, BPH, GERD Subjective Information Patient was admitted from SNF; has trach on O2/cool aerosol. 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 Per nursing notes, patient aphasic. G Tube present, started on Tube feeding this morning. Current Diet Order/ Nutrition Support Isosource 1.5 at 60 ml/hr x 20 hours; 1200ml volume, 1800kcal, 81 gm pro Patient / S.O Not Indicated Pertinent Medications vitamin C, iron, Synthroid, Mag-oxide, dilantin, miralax, senna Pertinent Labs Albumin 3.5 Nutritional Hx/Data Height 1.7 m Height (Calculated Centimeters) 170.2 Current Weight (lbs) 99.79 kg Weight (Calculated Kilograms) 99.8 Weight (Calculated Grams) 95096.3 [place] Body Weight 148 % [place] Body Weight 148 Body Mass Index (BMI) 34.4 Recent Weight Change No Weight Status Obese GI Symptoms GI Symptoms Constipation Last BM None noted since admission Difficult in: Chewing Swallowing Food Allergies No Cultural/Ethnic/Jew Belief None indicated Usual diet at home Tube feeding via Gtube Skin Integrity/Comment: Peter Up Estimated Nutritional Goals BEE in Kcals: Adj wt of IBW Calories/Kcals/Kg 75.4 kg Adj weight (25-30 kcal /kg) Kcals Calculated ~1831-8917 kcal/day Protein: Adj wt of IBW Protein g/k-1.2 gm/kg using Adj weight Protein Calculated ~75-90 gm/day Fluid: ml ~2547-9632 ml/day (1 ml/kcal) Nutritional Problem 1. Problem Problem Altered GI Function related to Etiology unknown cause aeb Signs/Symptoms: no bowel movement since admission and need for GI motility medications Intervention/Recommendation Comments 1. Continue current tube feeding regimen as tolerated by patient. 2. Continue GI motility medications per MD to aid with constipation. Current tube feeding. 3. If constipation not resolved, consider modifying tube feeding formula to Fibersource due to increased fiber content. 75ml/hr x 20hours. 4. DIscontinue Oral supplement of Novasource Renal from diet order. Expected Outcomes/Goals Expected Outcomes/Goals Tube feeding meets nutrient needs with tolerance, weight stable or trends toward ideal body weight, nutrition related labs WNL. F/U MR
[2017-06-21] MEDS: Albuterol/Ipratropium Neb 3 ML AERS HHN SCH ×4 (01:50→19:38)
[2017-06-21 06:20] LABS: % BASOPHILS 0.4 % (0.0-2.0); % EOSINOPHILS 6.9 % (0.0-5.0); % LYMPHOCYTES 30.9 % (20.0-50.0); % NEUTROPHILS 48.8 % (40.0-80.0); EOSINOPHILE ABSOLUTE 0.4 Th/cmm (0.1-0.4); HEMATOCRIT 39.3 % (41.0-60); HEMOGLOBIN 13.4 gm/dL (12-16); LYMPHOCYTE ABSOLUTE 1.9 Th/cmm (1.5-3.0); MEAN CELL VOLUME 94.8 fl (80-99); MEAN CORPUSCULAR HEMOGLOBIN 32.4 pg (26.0-30.0); MEAN CORPUSCULAR HGB CONC 34.2 pg (28.0-36.0); MEAN PLATELET VOLUME 7.1 fl; MONOCYTE ABSOLUTE 0.8 Th/cmm (0.3-1.0); NEUTROPHILE ABSOLUTE 3.2 Th/cmm (1.8-8.0); PLATELET COUNT 198 Th/cmm (150-400); RED BLOOD COUNT 4.14 Mil/cmm (4.30-5.70); RED CELL DISTRIBUTION WIDTH 12.8 % (11.5-20.0)
[2017-06-21 06:28] LABS: WHITE BLOOD COUNT 6.3 Th/cmm (4.8-10.8)
[2017-06-21] MEDS: Levothyroxine 0.075 Mg Tab PO SCH (06:50)
[2017-06-21 07:11] LABS: ANION GAP 12.6 (7.0-16.0); BUN - UREA NITROGEN 19 mg/dL (7-25); CALCIUM SERUM 9.6 mg/dL (8.6-10.3); CARBON DIOXIDE 26.9 mEq/L (21.0-31.0); CHLORIDE 104 mEq/L (98-107); CREATININE - SERUM 0.9 mg/dL (0.7-1.3); GFR AFRICAN-AMERICAN > 60.0 ml/min (>90); GFR NON AFRICAN-AMERICAN > 60.0 ml/min; GLUCOSE 126 mg/dL (70-105); POTASSIUM SERUM 3.5 mEq/L (3.5-5.1); SODIUM SERUM 140 mEq/L (136-145)
--- NOTE | 2017-06-21 08:56 | General Progress Note ---
Subjective - Review of Systems Service Date: 06/21/17 Subjective: Pt seen and eval. In bed. On isolation for TB. Awaiting sputum results. On IV Zosyn. Urine shows Pseudomonas. No n,v,d or cp. Afebrile. Objective - Results Result Diagrams: 06/21/17 05:38 06/21/17 05:38 Recent Labs: Laboratory Last Values WBC 6.3 Th/cmm (4.8-10.8) D 06/21/17 05:38 RBC 4.14 Mil/cmm (4.30-5.70) L 06/21/17 05:38 Hgb 13.4 gm/dL (12-16) 06/21/17 05:38 Hct 39.3 % (41.0-60) L 06/21/17 05:38 MCV 94.8 fl (80-99) 06/21/17 05:38 MCH 32.4 pg (26.0-30.0) H 06/21/17 05:38 MCHC Differential 34.2 pg (28.0-36.0) 06/21/17 05:38 RDW 12.8 % (11.5-20.0) 06/21/17 05:38 Plt Count 198 Th/cmm (150-400) 06/21/17 05:38 MPV 7.1 fl 06/21/17 05:38 Neutrophils % 48.8 % (40.0-80.0) 06/21/17 05:38 Lymphocytes % 30.9 % (20.0-50.0) 06/21/17 05:38 Monocytes % 13.0 % (2.0-10.0) H 06/21/17 05:38 Eosinophils % 6.9 % (0.0-5.0) H 06/21/17 05:38 Basophils % 0.4 % (0.0-2.0) 06/21/17 05:38 Specimen Source arteial 06/17/17 18:47 Sample Site right radial 06/17/17 18:47 pH 7.44 (7.35-7.45) 06/17/17 18:47 pCO2 50.0 mmHg (35.0-45.0) H 06/17/17 18:47 pO2 74.0 mmHg (80.0-100.0) L 06/17/17 18:47 HCO3 31.4 mEq/L (20.0-26.0) H 06/17/17 18:47 Base Excess 8.4 mEq/L (-3.0-3.0) H 06/17/17 18:47 O2 Saturation 95.0 % (92.0-100.0) 06/17/17 18:47 Jaime Test positive 06/17/17 18:47 Vent Rate na 06/17/17 18:47 Inspired O2 42 06/17/17 18:47 Tidal Volume na 06/17/17 18:47 PEEP na 06/17/17 18:47 Pressure (ins/psv/peep) na 06/17/17 18:47 Critical Value sc 06/17/17 18:47 Sodium 140 mEq/L (136-145) 06/21/17 05:38 Potassium 3.5 mEq/L (3.5-5.1) 06/21/17 05:38 Chloride 104 mEq/L (98-107) 06/21/17 05:38 Carbon Dioxide 26.9 mEq/L (21.0-31.0) 06/21/17 05:38 Anion Gap 12.6 (7.0-16.0) 06/21/17 05:38 BUN 19 mg/dL (7-25) 06/21/17 05:38 Creatinine 0.9 mg/dL (0.7-1.3) 06/21/17 05:38 Est GFR ( Amer) > 60.0 ml/min (>90) 06/21/17 05:38 Est GFR (Non-Af Amer) > 60.0 ml/min 06/21/17 05:38 BUN/Creatinine Ratio 21.1 06/21/17 05:38 Glucose 126 mg/dL (70-105) H 06/21/17 05:38 POC Glucose 154 MG/DL (70 - 105) H 06/18/17 06:33 Calcium 9.6 mg/dL (8.6-10.3) 06/21/17 05:38 Total Bilirubin 0.5 mg/dL (0.3-1.0) 06/17/17 18:51 AST 21 U/L (13-39) 06/17/17 18:51 ALT 21 U/L (7-52) 06/17/17 18:51 Alkaline Phosphatase 179 U/L (34-104) H 06/17/17 18:51 Total Protein 8.1 gm/dL (6.0-8.3) 06/17/17 18:51 Albumin 3.5 gm/dL (4.2-5.5) L 06/17/17 18:51 Globulin 4.6 gm/dL 06/17/17 18:51 Albumin/Globulin Ratio 0.8 (1.0-1.8) L 06/17/17 18:51 Urine Source RANDOM 06/17/17 20:05 Urine Color YELLOW 06/17/17 20:05 Urine Clarity CLOUDY (CLEAR) 06/17/17 20:05 Urine pH 7.5 (4.6 - 8.0) 06/17/17 20:05 Ur Specific [place] 1.010 (1.005-1.030) 06/17/17 20:05 Urine Protein TRACE mg/dL (NEGATIVE) 06/17/17 20:05 Urine Glucose (UA) NEGATIVE mg/dL (NEGATIVE) 06/17/17 20:05 Urine Ketones NEGATIVE mg/dL (NEGATIVE) 06/17/17 20:05 Urine Blood SMALL (NEGATIVE) H 06/17/17 20:05 Urine Nitrate POSITIVE (NEGATIVE) H 06/17/17 20:05 Urine Bilirubin NEGATIVE (NEGATIVE) 06/17/17 20:05 Urine Urobilinogen 0.2 E.U./dL (0.2 - 1.0) 06/17/17 20:05 Ur Leukocyte Esterase LARGE (NEGATIVE) H 06/17/17 20:05 Urine RBC 2-5 /hpf (0-5) H 06/17/17 20:05 Urine WBC 25-50 /hpf (0-5) H 06/17/17 20:05 Ur Epithelial Cells NONE SEEN /lpf (FEW) 06/17/17 20:05 Urine Bacteria MODERATE /hpf (NONE SEEN) H 06/17/17 20:05 HIV 1&2 Antibody Screen NEGATIVE (NEG) 06/19/17 06:01 - Physical Exam Vitals and I&O: Vital Signs Temp 97.6 F 06/21/17 08:43 Pulse 66 06/21/17 08:43 Resp 19 06/21/17 08:43 BP 99/69 06/21/17 08:43 Pulse Ox 94 06/21/17 08:43 Intake & Output 06/20/17 06/21/17 06/21/17 18:59 06:59 18:59 Intake Total 50 840 Balance 50 840 Weight (lbs) 98.883 kg 91.626 kg Intake: Intake, IV Amount 50 100 Piperacillin Sodium/ 50 100 Tazobact 3.375 gm In Sodium Chloride 0.9% 50 ml @ 100 mls/hr IV Q6HR [facility] Rx#:[id number] Tube Feeding 540 Other 200 Other: # Voids 3 # Bowel Movements 1 Active Medications: Current Medications Acetaminophen (Tylenol 650mg/20.3ml Suspension) 650 mg GT Q6H PRN PRN Reason: TEMP > 100, OR MILD PAIN Stop: 08/17/17 08:36 Albuterol/Ipratropium (Duoneb Neb) 3 ml HHN Q6HR [facility] Stop: 08/17/17 11:59 Last Admin: 06/21/17 08:05 Dose: 3 ml Ascorbic Acid (Vitamin C) 1,000 mg PO DAILY [facility] Stop: 08/17/17 10:54 Last Admin: 06/20/17 11:09 Dose: 1,000 mg Clonazepam (Klonopin) 2 mg GT Q6H [facility] Stop: 08/17/17 06:59 Last Admin: 06/21/17 06:50 Dose: 2 mg Ferrous Sulfate (Iron) 300 mg GT Q12HR [facility] Stop: 08/17/17 08:59 Last Admin: 06/20/17 22:27 Dose: 300 mg Heparin Sodium (Porcine) (Heparin) 5,000 units SUBQ Q12HR [facility] Stop: 08/17/17 08:59 Last Admin: 06/20/17 22:27 Dose: 5,000 units Piperacillin Sod/Tazobactam (Sod 3.375 gm/ Sodium Chloride) 50 mls @ 100 mls/ hr IV Q6HR [facility] Stop: 08/17/17 00:00 Last Admin: 06/21/17 06:55 Dose: 100 mls/hr Lactobacillus Rhamnosus (Culturelle 15b) 1 each PO DAILY [facility] Stop: 08/19/17 12:59 Last Admin: 06/20/17 15:28 Dose: 1 each Levetiracetam (Keppra) 200 mg GT Q12HR [facility] Stop: 08/17/17 08:59 Last Admin: 06/20/17 22:27 Dose: 200 mg Levothyroxine Sodium (Synthroid) 0.075 mg PO QDAC [facility] Stop: 08/17/17 07:29 Last Admin: 06/21/17 06:50 Dose: 0.075 mg Magnesium Oxide (Mag-Oxide) 400 mg GT DAILY [facility] Stop: 08/17/17 08:59 Last Admin: 06/20/17 08:11 Dose: 400 mg Miscellaneous (Probiotic Screen) 1 ea MC PRN PRN PRN Reason: PROTOCOL Stop: 08/19/17 12:29 Mupirocin (Bactroban Oint) 1 appl NS BID [facility] Stop: 06/24/17 09:01 Last Admin: 06/20/17 18:33 Dose: 1 appl Phenytoin (Dilantin) 125 mg GT Q8HR [facility] Stop: 08/17/17 12:59 Last Admin: 06/21/17 06:49 Dose: 125 mg Polyethylene Glycol (Miralax) 17 gm PO DAILY [facility] Stop: 08/17/17 08:59 Last Admin: 06/20/17 08:13 Dose: 17 gm Senna (Senna) 8.6 mg GT Q12H [facility] Stop: 08/20/17 08:59 Terazosin HCl (Hytrin) 4 mg GT DAILY [facility] Stop: 08/17/17 08:59 Last Admin: 06/20/17 08:12 Dose: Not Given Topiramate (Topamax) 250 mg GT BID [facility] Stop: 08/17/17 08:59 Last Admin: 06/20/17 18:34 Dose: 250 mg Valproate Sodium (Depakene) 500 mg GT Q8H [facility] PRN Reason: Protocol Stop: 08/17/17 06:59 Last Admin: 06/21/17 06:55 Dose: 500 mg General: No acute distress HEENT: Atraumatic, EOMI Neck: Supple, Other (trach in place), no JVD Cardiovascular: Normal S1, Normal S2 Lungs: Other (decreased breath sounds) Abdomen: Bowel sounds, Soft Extremities: Clubbing Neurological: Normal tone Assessment/Plan - Problem List Patient Problems: All Active Problems COUGH AND CONGESTION WITH PNEUMONIA (Acute) - Assessment Assessment: Asp PNA Ch resp fail Sz D/O Possible TB Pseudomonas UTI Dysphagia - Plan Plan: PT is on isolation. FU on sputum afb for TB. On IV zosyn, but it's resistant to Pseudomonas. Will fu with ID recommendations. Pulm and ID following. No fevers. Nutritional Asmnt/Malnutr-PDOC - Dietary Evaluation Malnutrition Findings (Please click <Entered> for more info): Nutritional Asmnt/Malnutrition Start: 06/18/17 12: 16 Text: Status: Complete Freq: Document 06/18/17 12:16 MMULHERN (Rec: 06/18/17 12:31 MMULHERN MARY- FN) Nutritional Asmnt/Malnutrition Patient General Information Nutritional Screening High Risk Diagnosis Pneumonia Pertinent Medical Hx/Surgical Hx DM, epilepsy, CP, hypothyroidism, anemia, intellectual disabilities, pressure ulcer buttocks, dysphagia, BPH, GERD Subjective Information Patient was admitted from SNF; has trach on O2/cool aerosol. 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 Per nursing notes, patient aphasic. G Tube present, started on Tube feeding this morning. Current Diet Order/ Nutrition Support Isosource 1.5 at 60 ml/hr x 20 hours; 1200ml volume, 1800kcal, 81 gm pro Patient / S.O Not Indicated Pertinent Medications vitamin C, iron, Synthroid, Mag-oxide, dilantin, miralax, senna Pertinent Labs Albumin 3.5 Nutritional Hx/Data Height 1.7 m Height (Calculated Centimeters) 170.2 Current Weight (lbs) 99.79 kg Weight (Calculated Kilograms) 99.8 Weight (Calculated Grams) 03469.3 [place] Body Weight 148 % [place] Body Weight 148 Body Mass Index (BMI) 34.4 Recent Weight Change No Weight Status Obese GI Symptoms GI Symptoms Constipation Last BM None noted since admission Difficult in: Chewing Swallowing Food Allergies No Cultural/Ethnic/Tenriism Belief None indicated Usual diet at home Tube feeding via Gtube Skin Integrity/Comment: Peter Up Estimated Nutritional Goals BEE in Kcals: Adj wt of IBW Calories/Kcals/Kg 75.4 kg Adj weight (25-30 kcal /kg) Kcals Calculated ~6248-6684 kcal/day Protein: Adj wt of IBW Protein g/k-1.2 gm/kg using Adj weight Protein Calculated ~75-90 gm/day Fluid: ml ~7734-5162 ml/day (1 ml/kcal) Nutritional Problem 1. Problem Problem Altered GI Function related to Etiology unknown cause aeb Signs/Symptoms: no bowel movement since admission and need for GI motility medications Intervention/Recommendation Comments 1. Continue current tube feeding regimen as tolerated by patient. 2. Continue GI motility medications per MD to aid with constipation. Current tube feeding. 3. If constipation not resolved, consider modifying tube feeding formula to Fibersource due to increased fiber content. 75ml/hr x 20hours. 4. DIscontinue Oral supplement of Novasource Renal from diet order. Expected Outcomes/Goals Expected Outcomes/Goals Tube feeding meets nutrient needs with tolerance, weight stable or trends toward ideal body weight, nutrition related labs WNL. F/U MR
[2017-06-21] MEDS: Levetiracetam 500 mg/5mL 5mL UDSyr *for ORAL USE ONLY GT SCH ×2 (10:30→20:37)
[2017-06-21] MEDS: Lactobacillus Rhamnosus GG 15 Billion CFU CAP.SPRINK PO SCH (10:30)
[2017-06-21] MEDS: Ferrous Sulfate 300 MG/5 ML UDC GT SCH ×2 (10:30→20:37)
[2017-06-21] MEDS: POLYETHYLENE GLYCOL 3350 17 GM PACK PO SCH (11:14)
[2017-06-22] MEDS: Albuterol/Ipratropium Neb 3 ML AERS HHN SCH ×5 (00:38→23:15)
[2017-06-22 06:21] LABS: % BASOPHILS 0.4 % (0.0-2.0); % EOSINOPHILS 7.1 % (0.0-5.0); % LYMPHOCYTES 31.2 % (20.0-50.0); % MONOCYTES 11.2 % (2.0-10.0); % NEUTROPHILS 50.1 % (40.0-80.0); EOSINOPHILE ABSOLUTE 0.5 Th/cmm (0.1-0.4); HEMATOCRIT 40.6 % (41.0-60); HEMOGLOBIN 13.9 gm/dL (12-16); LYMPHOCYTE ABSOLUTE 2.1 Th/cmm (1.5-3.0); MEAN CELL VOLUME 94.5 fl (80-99); MEAN CORPUSCULAR HEMOGLOBIN 32.4 pg (26.0-30.0); MEAN CORPUSCULAR HGB CONC 34.3 pg (28.0-36.0); MEAN PLATELET VOLUME 7.1 fl; MONOCYTE ABSOLUTE 0.8 Th/cmm (0.3-1.0); NEUTROPHILE ABSOLUTE 3.4 Th/cmm (1.8-8.0); PLATELET COUNT 208 Th/cmm (150-400); RED CELL DISTRIBUTION WIDTH 12.9 % (11.5-20.0); WHITE BLOOD COUNT 6.8 Th/cmm (4.8-10.8)
[2017-06-22] MEDS: Levothyroxine 0.075 Mg Tab PO SCH (06:30)
[2017-06-22 07:04] LABS: ANION GAP 13.6 (7.0-16.0); BUN - UREA NITROGEN 17 mg/dL (7-25); CALCIUM SERUM 9.6 mg/dL (8.6-10.3); CARBON DIOXIDE 26.8 mEq/L (21.0-31.0); CHLORIDE 103 mEq/L (98-107); CREATININE - SERUM 0.9 mg/dL (0.7-1.3); GFR AFRICAN-AMERICAN > 60.0 ml/min (>90); GFR NON AFRICAN-AMERICAN > 60.0 ml/min; GLUCOSE 131 mg/dL (70-105); POTASSIUM SERUM 3.4 mEq/L (3.5-5.1); SODIUM SERUM 140 mEq/L (136-145)
--- NOTE | 2017-06-22 08:24 | General Progress Note ---
Subjective - Review of Systems Service Date: 06/22/17 Subjective: Pt seen and eval. In bed. On isolation for TB. So far ABG negative. Quantiferon pending. Urine shows Pseudomonas. No n,v,d or cp. Afebrile. Objective - Results Result Diagrams: 06/22/17 05:50 06/22/17 05:50 Recent Labs: Laboratory Last Values WBC 6.8 Th/cmm (4.8-10.8) 06/22/17 05:50 RBC 4.30 Mil/cmm (4.30-5.70) 06/22/17 05:50 Hgb 13.9 gm/dL (12-16) 06/22/17 05:50 Hct 40.6 % (41.0-60) L 06/22/17 05:50 MCV 94.5 fl (80-99) 06/22/17 05:50 MCH 32.4 pg (26.0-30.0) H 06/22/17 05:50 MCHC Differential 34.3 pg (28.0-36.0) 06/22/17 05:50 RDW 12.9 % (11.5-20.0) 06/22/17 05:50 Plt Count 208 Th/cmm (150-400) 06/22/17 05:50 MPV 7.1 fl 06/22/17 05:50 Neutrophils % 50.1 % (40.0-80.0) 06/22/17 05:50 Lymphocytes % 31.2 % (20.0-50.0) 06/22/17 05:50 Monocytes % 11.2 % (2.0-10.0) H 06/22/17 05:50 Eosinophils % 7.1 % (0.0-5.0) H 06/22/17 05:50 Basophils % 0.4 % (0.0-2.0) 06/22/17 05:50 Specimen Source arteial 06/17/17 18:47 Sample Site right radial 06/17/17 18:47 pH 7.44 (7.35-7.45) 06/17/17 18:47 pCO2 50.0 mmHg (35.0-45.0) H 06/17/17 18:47 pO2 74.0 mmHg (80.0-100.0) L 06/17/17 18:47 HCO3 31.4 mEq/L (20.0-26.0) H 06/17/17 18:47 Base Excess 8.4 mEq/L (-3.0-3.0) H 06/17/17 18:47 O2 Saturation 95.0 % (92.0-100.0) 06/17/17 18:47 Jaime Test positive 06/17/17 18:47 Vent Rate na 06/17/17 18:47 Inspired O2 42 06/17/17 18:47 Tidal Volume na 06/17/17 18:47 PEEP na 06/17/17 18:47 Pressure (ins/psv/peep) na 06/17/17 18:47 Critical Value sc 06/17/17 18:47 Sodium 140 mEq/L (136-145) 06/22/17 05:50 Potassium 3.4 mEq/L (3.5-5.1) L 06/22/17 05:50 Chloride 103 mEq/L (98-107) 06/22/17 05:50 Carbon Dioxide 26.8 mEq/L (21.0-31.0) 06/22/17 05:50 Anion Gap 13.6 (7.0-16.0) 06/22/17 05:50 BUN 17 mg/dL (7-25) 06/22/17 05:50 Creatinine 0.9 mg/dL (0.7-1.3) 06/22/17 05:50 Est GFR ( Amer) > 60.0 ml/min (>90) 06/22/17 05:50 Est GFR (Non-Af Amer) > 60.0 ml/min 06/22/17 05:50 BUN/Creatinine Ratio 18.9 06/22/17 05:50 Glucose 131 mg/dL (70-105) H 06/22/17 05:50 POC Glucose 154 MG/DL (70 - 105) H 06/18/17 06:33 Calcium 9.6 mg/dL (8.6-10.3) 06/22/17 05:50 Total Bilirubin 0.5 mg/dL (0.3-1.0) 06/17/17 18:51 AST 21 U/L (13-39) 06/17/17 18:51 ALT 21 U/L (7-52) 06/17/17 18:51 Alkaline Phosphatase 179 U/L (34-104) H 06/17/17 18:51 Total Protein 8.1 gm/dL (6.0-8.3) 06/17/17 18:51 Albumin 3.5 gm/dL (4.2-5.5) L 06/17/17 18:51 Globulin 4.6 gm/dL 06/17/17 18:51 Albumin/Globulin Ratio 0.8 (1.0-1.8) L 06/17/17 18:51 Urine Source RANDOM 06/17/17 20:05 Urine Color YELLOW 06/17/17 20:05 Urine Clarity CLOUDY (CLEAR) 06/17/17 20:05 Urine pH 7.5 (4.6 - 8.0) 06/17/17 20:05 Ur Specific [place] 1.010 (1.005-1.030) 06/17/17 20:05 Urine Protein TRACE mg/dL (NEGATIVE) 06/17/17 20:05 Urine Glucose (UA) NEGATIVE mg/dL (NEGATIVE) 06/17/17 20:05 Urine Ketones NEGATIVE mg/dL (NEGATIVE) 06/17/17 20:05 Urine Blood SMALL (NEGATIVE) H 06/17/17 20:05 Urine Nitrate POSITIVE (NEGATIVE) H 06/17/17 20:05 Urine Bilirubin NEGATIVE (NEGATIVE) 06/17/17 20:05 Urine Urobilinogen 0.2 E.U./dL (0.2 - 1.0) 06/17/17 20:05 Ur Leukocyte Esterase LARGE (NEGATIVE) H 06/17/17 20:05 Urine RBC 2-5 /hpf (0-5) H 06/17/17 20:05 Urine WBC 25-50 /hpf (0-5) H 06/17/17 20:05 Ur Epithelial Cells NONE SEEN /lpf (FEW) 06/17/17 20:05 Urine Bacteria MODERATE /hpf (NONE SEEN) H 06/17/17 20:05 HIV 1&2 Antibody Screen NEGATIVE (NEG) 06/19/17 06:01 - Physical Exam Vitals and I&O: Vital Signs Temp 96.2 F 06/22/17 04:00 Pulse 77 06/22/17 07:02 Resp 18 06/22/17 07:02 BP 114/68 06/22/17 04:00 Pulse Ox 97 06/22/17 07:02 Intake & Output 06/21/17 06/22/17 06/22/17 18:59 06:59 18:59 Intake Total 150 760 Balance 150 760 Weight (lbs) 91.626 kg 94.937 kg Intake: Intake, IV Amount 150 100 Piperacillin Sodium/ 150 100 Tazobact 3.375 gm In Sodium Chloride 0.9% 50 ml @ 100 mls/hr IV Q6HR [facility] Rx#:[id number] Tube Feeding 480 Other 180 Other: # Voids 3 # Bowel Movements 2 Stool Characteristics Soft Soft Liquid Brown Active Medications: Current Medications Acetaminophen (Tylenol 650mg/20.3ml Suspension) 650 mg GT Q6H PRN PRN Reason: TEMP > 100, OR MILD PAIN Stop: 08/17/17 08:36 Albuterol/Ipratropium (Duoneb Neb) 3 ml HHN Q6HR [facility] Stop: 08/17/17 11:59 Last Admin: 06/22/17 07:02 Dose: 3 ml Ascorbic Acid (Vitamin C) 1,000 mg PO DAILY [facility] Stop: 08/17/17 10:54 Last Admin: 06/21/17 10:30 Dose: 1,000 mg Clonazepam (Klonopin) 2 mg GT Q6H [facility] Stop: 08/17/17 06:59 Last Admin: 06/22/17 06:30 Dose: 2 mg Ferrous Sulfate (Iron) 300 mg GT Q12HR [facility] Stop: 08/17/17 08:59 Last Admin: 06/21/17 20:37 Dose: 300 mg Heparin Sodium (Porcine) (Heparin) 5,000 units SUBQ Q12HR [facility] Stop: 08/17/17 08:59 Last Admin: 06/21/17 20:37 Dose: 5,000 units Lactobacillus Rhamnosus (Culturelle 15b) 1 each PO DAILY [facility] Stop: 08/19/17 12:59 Last Admin: 06/21/17 10:30 Dose: 1 each Levetiracetam (Keppra) 200 mg GT Q12HR [facility] Stop: 08/17/17 08:59 Last Admin: 06/21/17 20:37 Dose: 200 mg Levothyroxine Sodium (Synthroid) 0.075 mg PO QDAC [facility] Stop: 08/17/17 07:29 Last Admin: 06/22/17 06:30 Dose: 0.075 mg Magnesium Oxide (Mag-Oxide) 400 mg GT DAILY [facility] Stop: 08/17/17 08:59 Last Admin: 06/21/17 10:30 Dose: 400 mg Miscellaneous (Probiotic Screen) 1 ea PRN PRN PRN Reason: PROTOCOL Stop: 08/19/17 12:29 Miscellaneous (Amikacin Iv Per Pharmacy) 1 ea PRN PRN PRN Reason: PROTOCOL Stop: 08/21/17 08:21 Mupirocin (Bactroban Oint) 1 appl NS BID [facility] Stop: 06/24/17 09:01 Last Admin: 06/21/17 17:26 Dose: 1 appl Phenytoin (Dilantin) 125 mg GT Q8HR [facility] Stop: 08/17/17 12:59 Last Admin: 06/22/17 05:31 Dose: 125 mg Polyethylene Glycol (Miralax) 17 gm PO DAILY [facility] Stop: 08/17/17 08:59 Last Admin: 06/21/17 11:14 Dose: Not Given Senna (Senna) 8.6 mg GT Q12H [facility] Stop: 08/20/17 08:59 Last Admin: 06/21/17 20:38 Dose: 8.6 mg Terazosin HCl (Hytrin) 4 mg GT DAILY [facility] Stop: 08/17/17 08:59 Last Admin: 06/21/17 11:14 Dose: Not Given Topiramate (Topamax) 250 mg GT BID [facility] Stop: 08/17/17 08:59 Last Admin: 06/21/17 17:27 Dose: 250 mg Valproate Sodium (Depakene) 500 mg GT Q8H [facility] PRN Reason: Protocol Stop: 08/17/17 06:59 Last Admin: 06/22/17 06:30 Dose: 500 mg General: No acute distress HEENT: Atraumatic, EOMI Neck: Supple, Other (trach in place), no JVD Cardiovascular: Normal S1, Normal S2 Lungs: Other (decreased breath sounds) Abdomen: Bowel sounds, Soft Extremities: Clubbing Neurological: Normal tone Assessment/Plan - Problem List Patient Problems: All Active Problems COUGH AND CONGESTION WITH PNEUMONIA (Acute) - Assessment Assessment: Asp PNA Ch resp fail Sz D/O Possible TB-very unlikely Pseudomonas UTI Dysphagia - Plan Plan: PT is on isolation. FU on sputum afb for TB-negative so far. On IV zosyn, but it's resistant to Pseudomonas. changed to Amikacin. Will fu with ID recommendations. Pulm and ID following. No fevers. Nutritional Asmnt/Malnutr-PDOC - Dietary Evaluation Malnutrition Findings (Please click <Entered> for more info): Nutritional Asmnt/Malnutrition Start: 06/18/17 12: 16 Text: Status: Complete Freq: Document 06/18/17 12:16 MMULHERN (Rec: 06/18/17 12:31 MMULHERN MARY- [email or web address]) Nutritional Asmnt/Malnutrition Patient General Information Nutritional Screening High Risk Diagnosis Pneumonia Pertinent Medical Hx/Surgical Hx DM, epilepsy, CP, hypothyroidism, anemia, intellectual disabilities, pressure ulcer buttocks, dysphagia, BPH, GERD Subjective Information Patient was admitted from SNF; has trach on O2/cool aerosol. 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 Per nursing notes, patient aphasic. G Tube present, started on Tube feeding this morning. Current Diet Order/ Nutrition Support Isosource 1.5 at 60 ml/hr x 20 hours; 1200ml volume, 1800kcal, 81 gm pro Patient / S.O Not Indicated Pertinent Medications vitamin C, iron, Synthroid, Mag-oxide, dilantin, miralax, senna Pertinent Labs Albumin 3.5 Nutritional Hx/Data Height 1.7 m Height (Calculated Centimeters) 170.2 Current Weight (lbs) 99.79 kg Weight (Calculated Kilograms) 99.8 Weight (Calculated Grams) 98893.3 [place] Body Weight 148 % [place] Body Weight 148 Body Mass Index (BMI) 34.4 Recent Weight Change No Weight Status Obese GI Symptoms GI Symptoms Constipation Last BM None noted since admission Difficult in: Chewing Swallowing Food Allergies No Cultural/Ethnic/Catholic Belief None indicated Usual diet at home Tube feeding via Gtube Skin Integrity/Comment: Peter Up Estimated Nutritional Goals BEE in Kcals: Adj wt of IBW Calories/Kcals/Kg 75.4 kg Adj weight (25-30 kcal /kg) Kcals Calculated ~2164-7389 kcal/day Protein: Adj wt of IBW Protein g/k-1.2 gm/kg using Adj weight Protein Calculated ~75-90 gm/day Fluid: ml ~4402-5246 ml/day (1 ml/kcal) Nutritional Problem 1. Problem Problem Altered GI Function related to Etiology unknown cause aeb Signs/Symptoms: no bowel movement since admission and need for GI motility medications Intervention/Recommendation Comments 1. Continue current tube feeding regimen as tolerated by patient. 2. Continue GI motility medications per MD to aid with constipation. Current tube feeding. 3. If constipation not resolved, consider modifying tube feeding formula to Fibersource due to increased fiber content. 75ml/hr x 20hours. 4. DIscontinue Oral supplement of Novasource Renal from diet order. Expected Outcomes/Goals Expected Outcomes/Goals Tube feeding meets nutrient needs with tolerance, weight stable or trends toward ideal body weight, nutrition related labs WNL. F/U MR
[2017-06-22] MEDS: Ferrous Sulfate 300 MG/5 ML UDC GT SCH ×2 (08:48→20:59)
[2017-06-22] MEDS: Lactobacillus Rhamnosus GG 15 Billion CFU CAP.SPRINK PO SCH (08:48)
[2017-06-22] MEDS: Levetiracetam 500 mg/5mL 5mL UDSyr *for ORAL USE ONLY GT SCH ×2 (08:50→20:58)
[2017-06-22] MEDS: POLYETHYLENE GLYCOL 3350 17 GM PACK PO SCH (08:51)
[2017-06-22] MEDS: Amikacin 1000 mg in D5W 100 mL IV SCH ×2 (11:19→20:55)
--- NOTE | 2017-06-22 19:43 | Discharge Summary ---
DATE OF DISCHARGE: 06/22/2017 DATE OF DISCHARGE BACK TO [facility]: 06/22/2017 CAUSE OF ADMISSION: The patient is a 51-year-old male who has history of stroke. He is bedbound. He has history of chronic respiratory failure. His PPD was positive. CT was done, which could not rule out TB. He was sent to the hospital for further workup and treatment. ADMITTING DIAGNOSES: Aspiration pneumonia, dysphagia, chronic respiratory failure. Also, as documented in my note. DISCHARGE DIAGNOSES: 1. TB, ruled out. 2. Aspiration pneumonia. 3. Chronic respiratory failure. 4. Dysphagia. 5. My diagnosis is documented in my note. 6. Pseudomonas UTI. SUMMARY OF HOSPITAL COURSE: The patient was admitted to telemetry. He was placed on proper isolation precautions for TB. Interferon was negative and were negative x 3. ID was consulted. He grew Pseudomonas UTI. The patient's pseudomonas was susceptible to amikacin and Zosyn, was changed to IV amikacin. The patient was cleared by ID as well. I saw the patient along with Pulmonary. CT did show bilateral infiltrates, but no evidence of active TB. He was treated appropriately. His white count has been trending down as well. Physical exam and labs as charted. PROGNOSIS: Fair. ACTIVITY: As tolerated. CONSULTS: Dr. Triston Call for ID and Dr. Bebo Call for Pulmonary. MEDICATIONS: All medication reviewed and reconciled. I also added Macrobid for his Staph aureus and amikacin for his pseudomonas UTI. PROGNOSIS: Fair. ACTIVITY: As tolerated. The patient is bedbound. JOB# [id number]
--- NOTE | 2017-06-23 00:05 | Infectious Disease Prog Note ---
Infectious Disease Subjective - Review of Systems Service Date: 06/22/17 Subjective: no new change, no fever. Infectious Disease Objective - Results Result Diagrams: 06/22/17 05:50 06/22/17 05:50 Recent Labs: Laboratory Last Values WBC 6.8 Th/cmm (4.8-10.8) 06/22/17 05:50 RBC 4.30 Mil/cmm (4.30-5.70) 06/22/17 05:50 Hgb 13.9 gm/dL (12-16) 06/22/17 05:50 Hct 40.6 % (41.0-60) L 06/22/17 05:50 MCV 94.5 fl (80-99) 06/22/17 05:50 MCH 32.4 pg (26.0-30.0) H 06/22/17 05:50 MCHC Differential 34.3 pg (28.0-36.0) 06/22/17 05:50 RDW 12.9 % (11.5-20.0) 06/22/17 05:50 Plt Count 208 Th/cmm (150-400) 06/22/17 05:50 MPV 7.1 fl 06/22/17 05:50 Neutrophils % 50.1 % (40.0-80.0) 06/22/17 05:50 Lymphocytes % 31.2 % (20.0-50.0) 06/22/17 05:50 Monocytes % 11.2 % (2.0-10.0) H 06/22/17 05:50 Eosinophils % 7.1 % (0.0-5.0) H 06/22/17 05:50 Basophils % 0.4 % (0.0-2.0) 06/22/17 05:50 Specimen Source arteial 06/17/17 18:47 Sample Site right radial 06/17/17 18:47 pH 7.44 (7.35-7.45) 06/17/17 18:47 pCO2 50.0 mmHg (35.0-45.0) H 06/17/17 18:47 pO2 74.0 mmHg (80.0-100.0) L 06/17/17 18:47 HCO3 31.4 mEq/L (20.0-26.0) H 06/17/17 18:47 Base Excess 8.4 mEq/L (-3.0-3.0) H 06/17/17 18:47 O2 Saturation 95.0 % (92.0-100.0) 06/17/17 18:47 Jaime Test positive 06/17/17 18:47 Vent Rate na 06/17/17 18:47 Inspired O2 42 06/17/17 18:47 Tidal Volume na 06/17/17 18:47 PEEP na 06/17/17 18:47 Pressure (ins/psv/peep) na 06/17/17 18:47 Critical Value sc 06/17/17 18:47 Sodium 140 mEq/L (136-145) 06/22/17 05:50 Potassium 3.4 mEq/L (3.5-5.1) L 06/22/17 05:50 Chloride 103 mEq/L (98-107) 06/22/17 05:50 Carbon Dioxide 26.8 mEq/L (21.0-31.0) 06/22/17 05:50 Anion Gap 13.6 (7.0-16.0) 06/22/17 05:50 BUN 17 mg/dL (7-25) 06/22/17 05:50 Creatinine 0.9 mg/dL (0.7-1.3) 06/22/17 05:50 Est GFR ( Amer) > 60.0 ml/min (>90) 06/22/17 05:50 Est GFR (Non-Af Amer) > 60.0 ml/min 06/22/17 05:50 BUN/Creatinine Ratio 18.9 06/22/17 05:50 Glucose 131 mg/dL (70-105) H 06/22/17 05:50 POC Glucose 154 MG/DL (70 - 105) H 06/18/17 06:33 Calcium 9.6 mg/dL (8.6-10.3) 06/22/17 05:50 Total Bilirubin 0.5 mg/dL (0.3-1.0) 06/17/17 18:51 AST 21 U/L (13-39) 06/17/17 18:51 ALT 21 U/L (7-52) 06/17/17 18:51 Alkaline Phosphatase 179 U/L (34-104) H 06/17/17 18:51 Total Protein 8.1 gm/dL (6.0-8.3) 06/17/17 18:51 Albumin 3.5 gm/dL (4.2-5.5) L 06/17/17 18:51 Globulin 4.6 gm/dL 06/17/17 18:51 Albumin/Globulin Ratio 0.8 (1.0-1.8) L 06/17/17 18:51 Urine Source RANDOM 06/17/17 20:05 Urine Color YELLOW 06/17/17 20:05 Urine Clarity CLOUDY (CLEAR) 06/17/17 20:05 Urine pH 7.5 (4.6 - 8.0) 06/17/17 20:05 Ur Specific [place] 1.010 (1.005-1.030) 06/17/17 20:05 Urine Protein TRACE mg/dL (NEGATIVE) 06/17/17 20:05 Urine Glucose (UA) NEGATIVE mg/dL (NEGATIVE) 06/17/17 20:05 Urine Ketones NEGATIVE mg/dL (NEGATIVE) 06/17/17 20:05 Urine Blood SMALL (NEGATIVE) H 06/17/17 20:05 Urine Nitrate POSITIVE (NEGATIVE) H 06/17/17 20:05 Urine Bilirubin NEGATIVE (NEGATIVE) 06/17/17 20:05 Urine Urobilinogen 0.2 E.U./dL (0.2 - 1.0) 06/17/17 20:05 Ur Leukocyte Esterase LARGE (NEGATIVE) H 06/17/17 20:05 Urine RBC 2-5 /hpf (0-5) H 06/17/17 20:05 Urine WBC 25-50 /hpf (0-5) H 06/17/17 20:05 Ur Epithelial Cells NONE SEEN /lpf (FEW) 06/17/17 20:05 Urine Bacteria MODERATE /hpf (NONE SEEN) H 06/17/17 20:05 HIV 1&2 Antibody Screen NEGATIVE (NEG) 06/19/17 06:01 TB (QFT) Gold In Tube Negative (Negative) 06/20/17 18:20 TB Test (QFT) Mitogen 2.90 IU/mL 06/20/17 18:20 TB Test (QFT) Antigen 0.02 IU/mL 06/20/17 18:20 TB Test Antigen - Nil 0.00 IU/mL 06/20/17 18:20 TB Test TB - Nil 0.02 IU/mL 06/20/17 18:20 TB Test (QFT) Interp (()) 06/20/17 18:20 - Physical Exam Vitals and I&O: Vital Signs Temp 96.8 F 06/22/17 20:00 Pulse 72 06/22/17 23:22 Resp 18 06/22/17 23:22 BP 118/67 06/22/17 20:00 Pulse Ox 98 06/22/17 23:22 Intake & Output 06/22/17 06/22/17 06/23/17 06:59 18:59 06:59 Intake Total 760 613 253 Balance 760 613 253 Weight (lbs) 94.937 kg 94.937 kg Intake: Intake, IV Amount 100 253 253 Amikacin 750 mg In 253 253 Dextrose 5% 250 ml @ 250 mls/hr IV Q12HR@0900,2100 [facility] Rx#:[id number] Piperacillin Sodium/ 100 Tazobact 3.375 gm In Sodium Chloride 0.9% 50 ml @ 100 mls/hr IV Q6HR [facility] Rx#:[id number] Oral 0 Tube Feeding 480 360 Other 180 Other: # Voids 3 2 # Bowel Movements 2 1 Stool Characteristics Soft Soft Liquid Liquid Brown Brown Active Medications: Current Medications Acetaminophen (Tylenol 650mg/20.3ml Suspension) 650 mg GT Q6H PRN PRN Reason: TEMP > 100, OR MILD PAIN Stop: 08/17/17 08:36 Albuterol/Ipratropium (Duoneb Neb) 3 ml HHN Q6HR [facility] Stop: 08/17/17 11:59 Last Admin: 06/22/17 23:15 Dose: 3 ml Ascorbic Acid (Vitamin C) 1,000 mg PO DAILY [facility] Stop: 08/17/17 10:54 Last Admin: 06/22/17 08:49 Dose: 1,000 mg Clonazepam (Klonopin) 2 mg GT Q6H [facility] Stop: 08/17/17 06:59 Last Admin: 06/23/17 00:00 Dose: 2 mg Ferrous Sulfate (Iron) 300 mg GT Q12HR [facility] Stop: 08/17/17 08:59 Last Admin: 06/22/17 20:59 Dose: 300 mg Heparin Sodium (Porcine) (Heparin) 5,000 units SUBQ Q12HR [facility] Stop: 08/17/17 08:59 Last Admin: 06/22/17 20:57 Dose: 5,000 units Amikacin Sulfate 750 mg/ (Dextrose) 253 mls @ 250 mls/hr IV Q12HR@0900,2100 [facility] Stop: 08/21/17 09:59 Last Infusion: 06/22/17 21:56 Dose: Infused Lactobacillus Rhamnosus (Culturelle 15b) 1 each PO DAILY [facility] Stop: 08/19/17 12:59 Last Admin: 06/22/17 08:48 Dose: 1 each Levetiracetam (Keppra) 200 mg GT Q12HR [facility] Stop: 08/17/17 08:59 Last Admin: 06/22/17 20:58 Dose: 200 mg Levothyroxine Sodium (Synthroid) 0.075 mg PO QDAC [facility] Stop: 08/17/17 07:29 Last Admin: 06/22/17 06:30 Dose: 0.075 mg Magnesium Oxide (Mag-Oxide) 400 mg GT DAILY [facility] Stop: 08/17/17 08:59 Last Admin: 06/22/17 08:48 Dose: 400 mg Miscellaneous (Probiotic Screen) 1 [facility] PRN PRN PRN Reason: PROTOCOL Stop: 08/19/17 12:29 Miscellaneous (Amikacin Iv Per Pharmacy) 1 [facility] PRN PRN PRN Reason: PROTOCOL Stop: 08/21/17 08:21 Mupirocin (Bactroban Oint) 1 appl NS BID [facility] Stop: 06/24/17 09:01 Last Admin: 06/22/17 18:33 Dose: 1 appl Phenytoin (Dilantin) 125 mg GT Q8HR [facility] Stop: 08/17/17 12:59 Last Admin: 06/22/17 21:00 Dose: 125 mg Polyethylene Glycol (Miralax) 17 gm PO DAILY [facility] Stop: 08/17/17 08:59 Last Admin: 06/22/17 08:51 Dose: 17 gm Senna (Senna) 8.6 mg GT Q12H [facility] Stop: 08/20/17 08:59 Last Admin: 06/22/17 21:01 Dose: 8.6 mg Terazosin HCl (Hytrin) 4 mg GT DAILY [facility] Stop: 08/17/17 08:59 Last Admin: 06/22/17 08:48 Dose: 4 mg Topiramate (Topamax) 250 mg GT BID [facility] Stop: 08/17/17 08:59 Last Admin: 06/22/17 18:32 Dose: 250 mg Valproate Sodium (Depakene) 500 mg GT Q8H [facility] PRN Reason: Protocol Stop: 08/17/17 06:59 Last Admin: 06/22/17 23:54 Dose: 500 mg General: no acute distress, well developed, well nourished HEENT: atraumatic, normocephalic, PERRLA Neck: supple, tracheostomy Cardiovascular: S1S2, regular Lungs: clear to auscultation bilaterally, clear to percussion Abdomen: soft, no tender, no distended Extremities: no cyanosis, no clubbing, no edema Neurological: awake, alert, oriented, CN 2-12 intact Skin: intact Infectious Disease Assmt/Plan - Problem List Patient Problems: All Active Problems COUGH AND CONGESTION WITH PNEUMONIA (Acute) - Assessment Assessment: 1. 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 2. Pneumonia, Right. 3. Respiratory insufficiency, on T - bar. 4. Dysphasia. 5. DM2 6. Cerebral palsy. 7. UTI. - Plan Plan: TB ruled out. can be discharged on levaquin and amikacin for 5 days. Nutritional Asmnt/Malnutr-PDOC - Dietary Evaluation Malnutrition Findings (Please click <Entered> for more info): Nutritional Asmnt/Malnutrition Start: 06/18/17 12: 16 Text: Status: Complete Freq: Document 06/18/17 12:16 MMULHERN (Rec: 06/18/17 12:31 MMULHERQuin HERNANDEZ [email or web address]) Nutritional Asmnt/Malnutrition Patient General Information Nutritional Screening High Risk Diagnosis Pneumonia Pertinent Medical Hx/Surgical Hx DM, epilepsy, CP, hypothyroidism, anemia, intellectual disabilities, pressure ulcer buttocks, dysphagia, BPH, GERD Subjective Information Patient was admitted from SNF; has trach on O2/cool aerosol. 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 Per nursing notes, patient aphasic. G Tube present, started on Tube feeding this morning. Current Diet Order/ Nutrition Support Isosource 1.5 at 60 ml/hr x 20 hours; 1200ml volume, 1800kcal, 81 gm pro Patient / S.O Not Indicated Pertinent Medications vitamin C, iron, Synthroid, Mag-oxide, dilantin, miralax, senna Pertinent Labs Albumin 3.5 Nutritional Hx/Data Height 1.7 m Height (Calculated Centimeters) 170.2 Current Weight (lbs) 99.79 kg Weight (Calculated Kilograms) 99.8 Weight (Calculated Grams) 82493.3 [place] Body Weight 148 % [place] Body Weight 148 Body Mass Index (BMI) 34.4 Recent Weight Change No Weight Status Obese GI Symptoms GI Symptoms Constipation Last BM None noted since admission Difficult in: Chewing Swallowing Food Allergies No Cultural/Ethnic/Cheondoism Belief None indicated Usual diet at home Tube feeding via Gtube Skin Integrity/Comment: Peter Up Estimated Nutritional Goals BEE in Kcals: Adj wt of IBW Calories/Kcals/Kg 75.4 kg Adj weight (25-30 kcal /kg) Kcals Calculated ~2257-9474 kcal/day Protein: Adj wt of IBW Protein g/k-1.2 gm/kg using Adj weight Protein Calculated ~75-90 gm/day Fluid: ml ~6356-3223 ml/day (1 ml/kcal) Nutritional Problem 1. Problem Problem Altered GI Function related to Etiology unknown cause aeb Signs/Symptoms: no bowel movement since admission and need for GI motility medications Intervention/Recommendation Comments 1. Continue current tube feeding regimen as tolerated by patient. 2. Continue GI motility medications per MD to aid with constipation. Current tube feeding. 3. If constipation not resolved, consider modifying tube feeding formula to Fibersource due to increased fiber content. 75ml/hr x 20hours. 4. DIscontinue Oral supplement of Novasource Renal from diet order. Expected Outcomes/Goals Expected Outcomes/Goals Tube feeding meets nutrient needs with tolerance, weight stable or trends toward ideal body weight, nutrition related labs WNL. F/U MR
[2017-06-23] MEDS: Levothyroxine 0.075 Mg Tab PO SCH (06:39)
[2017-06-23 06:44] LABS: % BASOPHILS 0.6 % (0.0-2.0); % EOSINOPHILS 6.2 % (0.0-5.0); % LYMPHOCYTES 35.9 % (20.0-50.0); % MONOCYTES 10.6 % (2.0-10.0); % NEUTROPHILS 46.7 % (40.0-80.0); EOSINOPHILE ABSOLUTE 0.4 Th/cmm (0.1-0.4); HEMATOCRIT 40.1 % (41.0-60); HEMOGLOBIN 13.8 gm/dL (12-16); LYMPHOCYTE ABSOLUTE 2.4 Th/cmm (1.5-3.0); MEAN CELL VOLUME 94.8 fl (80-99); MEAN CORPUSCULAR HEMOGLOBIN 32.6 pg (26.0-30.0); MEAN CORPUSCULAR HGB CONC 34.5 pg (28.0-36.0); MEAN PLATELET VOLUME 6.9 fl; MONOCYTE ABSOLUTE 0.7 Th/cmm (0.3-1.0); NEUTROPHILE ABSOLUTE 3.3 Th/cmm (1.8-8.0); PLATELET COUNT 238 Th/cmm (150-400); RED BLOOD COUNT 4.23 Mil/cmm (4.30-5.70); RED CELL DISTRIBUTION WIDTH 12.9 % (11.5-20.0); WHITE BLOOD COUNT 6.8 Th/cmm (4.8-10.8)
[2017-06-23] MEDS: Albuterol/Ipratropium Neb 3 ML AERS HHN SCH (06:58)
[2017-06-23 07:11] LABS: ANION GAP 12.4 (7.0-16.0); BUN - UREA NITROGEN 18 mg/dL (7-25); CALCIUM SERUM 9.4 mg/dL (8.6-10.3); CARBON DIOXIDE 26.8 mEq/L (21.0-31.0); CHLORIDE 104 mEq/L (98-107); CREATININE - SERUM 0.8 mg/dL (0.7-1.3); GFR AFRICAN-AMERICAN > 60.0 ml/min (>90); GFR NON AFRICAN-AMERICAN > 60.0 ml/min; GLUCOSE 127 mg/dL (70-105); POTASSIUM SERUM 3.2 mEq/L (3.5-5.1); SODIUM SERUM 140 mEq/L (136-145)
[2017-06-23] MEDS ORDERED: Potassium Chloride Elixir 20 mEq /15 mL UDC GT ONE (08:00)
[2017-06-23] MEDS: Amikacin 1000 mg in D5W 100 mL IV SCH (09:01)
[2017-06-23] MEDS: POLYETHYLENE GLYCOL 3350 17 GM PACK PO SCH (09:04)
[2017-06-23] MEDS: Levetiracetam 500 mg/5mL 5mL UDSyr *for ORAL USE ONLY GT SCH (09:08)
[2017-06-23] MEDS: Ferrous Sulfate 300 MG/5 ML UDC GT SCH (09:11)
[2017-06-23] MEDS: Lactobacillus Rhamnosus GG 15 Billion CFU CAP.SPRINK PO SCH (09:12)
--- NOTE | 2017-06-23 09:15 | General Progress Note ---
Subjective - Review of Systems Service Date: 06/23/17 Subjective: Pt seen and eval. In bed. AFB all negative. Pt no longer on TB isolation. Quantiferon negative. Urine shows Pseudomonas. No n,v,d or cp. Afebrile. Objective - Results Result Diagrams: 06/23/17 06:10 06/23/17 06:10 Recent Labs: Laboratory Last Values WBC 6.8 Th/cmm (4.8-10.8) 06/23/17 06:10 RBC 4.23 Mil/cmm (4.30-5.70) L 06/23/17 06:10 Hgb 13.8 gm/dL (12-16) 06/23/17 06:10 Hct 40.1 % (41.0-60) L 06/23/17 06:10 MCV 94.8 fl (80-99) 06/23/17 06:10 MCH 32.6 pg (26.0-30.0) H 06/23/17 06:10 MCHC Differential 34.5 pg (28.0-36.0) 06/23/17 06:10 RDW 12.9 % (11.5-20.0) 06/23/17 06:10 Plt Count 238 Th/cmm (150-400) 06/23/17 06:10 MPV 6.9 fl 06/23/17 06:10 Neutrophils % 46.7 % (40.0-80.0) 06/23/17 06:10 Lymphocytes % 35.9 % (20.0-50.0) 06/23/17 06:10 Monocytes % 10.6 % (2.0-10.0) H 06/23/17 06:10 Eosinophils % 6.2 % (0.0-5.0) H 06/23/17 06:10 Basophils % 0.6 % (0.0-2.0) 06/23/17 06:10 Specimen Source arteial 06/17/17 18:47 Sample Site right radial 06/17/17 18:47 pH 7.44 (7.35-7.45) 06/17/17 18:47 pCO2 50.0 mmHg (35.0-45.0) H 06/17/17 18:47 pO2 74.0 mmHg (80.0-100.0) L 06/17/17 18:47 HCO3 31.4 mEq/L (20.0-26.0) H 06/17/17 18:47 Base Excess 8.4 mEq/L (-3.0-3.0) H 06/17/17 18:47 O2 Saturation 95.0 % (92.0-100.0) 06/17/17 18:47 Jaime Test positive 06/17/17 18:47 Vent Rate na 06/17/17 18:47 Inspired O2 42 06/17/17 18:47 Tidal Volume na 06/17/17 18:47 PEEP na 06/17/17 18:47 Pressure (ins/psv/peep) na 06/17/17 18:47 Critical Value sc 06/17/17 18:47 Sodium 140 mEq/L (136-145) 06/23/17 06:10 Potassium 3.2 mEq/L (3.5-5.1) L 06/23/17 06:10 Chloride 104 mEq/L (98-107) 06/23/17 06:10 Carbon Dioxide 26.8 mEq/L (21.0-31.0) 06/23/17 06:10 Anion Gap 12.4 (7.0-16.0) 06/23/17 06:10 BUN 18 mg/dL (7-25) 06/23/17 06:10 Creatinine 0.8 mg/dL (0.7-1.3) 06/23/17 06:10 Est GFR ( Amer) > 60.0 ml/min (>90) 06/23/17 06:10 Est GFR (Non-Af Amer) > 60.0 ml/min 06/23/17 06:10 BUN/Creatinine Ratio 22.5 06/23/17 06:10 Glucose 127 mg/dL (70-105) H 06/23/17 06:10 POC Glucose 154 MG/DL (70 - 105) H 06/18/17 06:33 Calcium 9.4 mg/dL (8.6-10.3) 06/23/17 06:10 Total Bilirubin 0.5 mg/dL (0.3-1.0) 06/17/17 18:51 AST 21 U/L (13-39) 06/17/17 18:51 ALT 21 U/L (7-52) 06/17/17 18:51 Alkaline Phosphatase 179 U/L (34-104) H 06/17/17 18:51 Total Protein 8.1 gm/dL (6.0-8.3) 06/17/17 18:51 Albumin 3.5 gm/dL (4.2-5.5) L 06/17/17 18:51 Globulin 4.6 gm/dL 06/17/17 18:51 Albumin/Globulin Ratio 0.8 (1.0-1.8) L 06/17/17 18:51 Urine Source RANDOM 06/17/17 20:05 Urine Color YELLOW 06/17/17 20:05 Urine Clarity CLOUDY (CLEAR) 06/17/17 20:05 Urine pH 7.5 (4.6 - 8.0) 06/17/17 20:05 Ur Specific [place] 1.010 (1.005-1.030) 06/17/17 20:05 Urine Protein TRACE mg/dL (NEGATIVE) 06/17/17 20:05 Urine Glucose (UA) NEGATIVE mg/dL (NEGATIVE) 06/17/17 20:05 Urine Ketones NEGATIVE mg/dL (NEGATIVE) 06/17/17 20:05 Urine Blood SMALL (NEGATIVE) H 06/17/17 20:05 Urine Nitrate POSITIVE (NEGATIVE) H 06/17/17 20:05 Urine Bilirubin NEGATIVE (NEGATIVE) 06/17/17 20:05 Urine Urobilinogen 0.2 E.U./dL (0.2 - 1.0) 06/17/17 20:05 Ur Leukocyte Esterase LARGE (NEGATIVE) H 06/17/17 20:05 Urine RBC 2-5 /hpf (0-5) H 06/17/17 20:05 Urine WBC 25-50 /hpf (0-5) H 06/17/17 20:05 Ur Epithelial Cells NONE SEEN /lpf (FEW) 06/17/17 20:05 Urine Bacteria MODERATE /hpf (NONE SEEN) H 06/17/17 20:05 HIV 1&2 Antibody Screen NEGATIVE (NEG) 06/19/17 06:01 TB (QFT) Gold In Tube Negative (Negative) 06/20/17 18:20 TB Test (QFT) Mitogen 2.90 IU/mL 06/20/17 18:20 TB Test (QFT) Antigen 0.02 IU/mL 02/19/18 18:20 TB Test Antigen - Nil 0.00 IU/mL 06/20/17 18:20 TB Test TB - Nil 0.02 IU/mL 06/20/17 18:20 TB Test (QFT) Interp (()) 06/20/17 18:20 - Physical Exam Vitals and I&O: Vital Signs Temp 97.0 F 06/23/17 04:00 Pulse 76 06/23/17 06:58 Resp 18 06/23/17 06:58 BP 102/69 06/23/17 04:00 Pulse Ox 97 06/23/17 06:58 Intake & Output 06/22/17 06/23/17 06/23/17 18:59 06:59 18:59 Intake Total 613 913 Balance 613 913 Weight (lbs) 94.937 kg 96.162 kg Intake: Intake, IV Amount 253 253 Amikacin 750 mg In 253 253 Dextrose 5% 250 ml @ 250 mls/hr IV Q12HR@0900,2100 [facility] Rx#:[id number] Oral 0 Tube Feeding 360 480 Other 180 Other: # Voids 2 3 # Bowel Movements 1 Stool Characteristics Soft Liquid Brown Active Medications: Current Medications Acetaminophen (Tylenol 650mg/20.3ml Suspension) 650 mg GT Q6H PRN PRN Reason: TEMP > 100, OR MILD PAIN Stop: 08/17/17 08:36 Albuterol/Ipratropium (Duoneb Neb) 3 ml HHN Q6HR [facility] Stop: 08/17/17 11:59 Last Admin: 06/23/17 06:58 Dose: 3 ml Ascorbic Acid (Vitamin C) 1,000 mg PO DAILY [facility] Stop: 08/17/17 10:54 Last Admin: 06/22/17 08:49 Dose: 1,000 mg Clonazepam (Klonopin) 2 mg GT Q6H [facility] Stop: 08/17/17 06:59 Last Admin: 06/23/17 06:39 Dose: 2 mg Ferrous Sulfate (Iron) 300 mg GT Q12HR [facility] Stop: 08/17/17 08:59 Last Admin: 06/22/17 20:59 Dose: 300 mg Heparin Sodium (Porcine) (Heparin) 5,000 units SUBQ Q12HR [facility] Stop: 08/17/17 08:59 Last Admin: 06/22/17 20:57 Dose: 5,000 units Amikacin Sulfate 750 mg/ (Dextrose) 253 mls @ 250 mls/hr IV Q12HR@0900,2100 [facility] Stop: 08/21/17 09:59 Last Infusion: 06/22/17 21:56 Dose: Infused Lactobacillus Rhamnosus (Culturelle 15b) 1 each PO DAILY [facility] Stop: 08/19/17 12:59 Last Admin: 06/22/17 08:48 Dose: 1 each Levetiracetam (Keppra) 200 mg GT Q12HR [facility] Stop: 08/17/17 08:59 Last Admin: 06/22/17 20:58 Dose: 200 mg Levofloxacin (Levaquin) 500 mg PO DAILY [facility] Stop: 08/22/17 08:59 Levothyroxine Sodium (Synthroid) 0.075 mg PO QDAC [facility] Stop: 08/17/17 07:29 Last Admin: 06/23/17 06:39 Dose: 0.075 mg Magnesium Oxide (Mag-Oxide) 400 mg GT DAILY [facility] Stop: 08/17/17 08:59 Last Admin: 06/22/17 08:48 Dose: 400 mg Miscellaneous (Probiotic Screen) 1 [facility] PRN PRN PRN Reason: PROTOCOL Stop: 08/19/17 12:29 Miscellaneous (Amikacin Iv Per Pharmacy) 1 [facility] PRN PRN PRN Reason: PROTOCOL Stop: 08/21/17 08:21 Mupirocin (Bactroban Oint) 1 appl NS BID [facility] Stop: 06/24/17 09:01 Last Admin: 06/22/17 18:33 Dose: 1 appl Phenytoin (Dilantin) 125 mg GT Q8HR [facility] Stop: 08/17/17 12:59 Last Admin: 06/23/17 04:41 Dose: 125 mg Polyethylene Glycol (Miralax) 17 gm PO DAILY [facility] Stop: 08/17/17 08:59 Last Admin: 06/22/17 08:51 Dose: 17 gm Senna (Senna) 8.6 mg GT Q12H [facility] Stop: 08/20/17 08:59 Last Admin: 06/22/17 21:01 Dose: 8.6 mg Terazosin HCl (Hytrin) 4 mg GT DAILY [facility] Stop: 08/17/17 08:59 Last Admin: 06/22/17 08:48 Dose: 4 mg Topiramate (Topamax) 250 mg GT BID [facility] Stop: 08/17/17 08:59 Last Admin: 06/22/17 18:32 Dose: 250 mg Valproate Sodium (Depakene) 500 mg GT Q8H [facility] PRN Reason: Protocol Stop: 08/17/17 06:59 Last Admin: 06/23/17 06:39 Dose: 500 mg General: No acute distress HEENT: Atraumatic, EOMI Neck: Supple, Other (trach in place), no JVD Cardiovascular: Normal S1, Normal S2 Lungs: Other (decreased breath sounds) Abdomen: Bowel sounds, Soft Extremities: Clubbing Neurological: Normal tone Assessment/Plan - Problem List Patient Problems: All Active Problems COUGH AND CONGESTION WITH PNEUMONIA (Acute) - Assessment Assessment: Asp PNA Ch resp fail Sz D/O TB-ruled out Dysphagia Pseudomonas UTI - Plan Plan: PT is on isolation. Quantiferon and AFB all negative. On Levaquin and Amikacin. Awaiting for bed at snf. Nutritional Asmnt/Malnutr-PDOC - Dietary Evaluation Malnutrition Findings (Please click <Entered> for more info): Nutritional Asmnt/Malnutrition Start: 06/18/17 12: 16 Text: Status: Complete Freq: Document 06/18/17 12:16 MMULGAYLE (Rec: 06/18/17 12:31 MMULGAYLE HERNANDEZ- FNS1) Nutritional Asmnt/Malnutrition Patient General Information Nutritional Screening High Risk Diagnosis Pneumonia Pertinent Medical Hx/Surgical Hx DM, epilepsy, CP, hypothyroidism, anemia, intellectual disabilities, pressure ulcer buttocks, dysphagia, BPH, GERD Subjective Information Patient was admitted from SNF; has trach on O2/cool aerosol. 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 Per nursing notes, patient aphasic. G Tube present, started on Tube feeding this morning. Current Diet Order/ Nutrition Support Isosource 1.5 at 60 ml/hr x 20 hours; 1200ml volume, 1800kcal, 81 gm pro Patient / S.O Not Indicated Pertinent Medications vitamin C, iron, Synthroid, Mag-oxide, dilantin, miralax, senna Pertinent Labs Albumin 3.5 Nutritional Hx/Data Height 1.7 m Height (Calculated Centimeters) 170.2 Current Weight (lbs) 99.79 kg Weight (Calculated Kilograms) 99.8 Weight (Calculated Grams) 39250.3 [place] Body Weight 148 % [place] Body Weight 148 Body Mass Index (BMI) 34.4 Recent Weight Change No Weight Status Obese GI Symptoms GI Symptoms Constipation Last BM None noted since admission Difficult in: Chewing Swallowing Food Allergies No Cultural/Ethnic/[employer] Belief None indicated Usual diet at home Tube feeding via Gtube Skin Integrity/Comment: Peter Up Estimated Nutritional Goals BEE in Kcals: Adj wt of IBW Calories/Kcals/Kg 75.4 kg Adj weight (25-30 kcal /kg) Kcals Calculated ~3640-3218 kcal/day Protein: Adj wt of IBW Protein g/k-1.2 gm/kg using Adj weight Protein Calculated ~75-90 gm/day Fluid: ml ~3710-1464 ml/day (1 ml/kcal) Nutritional Problem 1. Problem Problem Altered GI Function related to Etiology unknown cause aeb Signs/Symptoms: no bowel movement since admission and need for GI motility medications Intervention/Recommendation Comments 1. Continue current tube feeding regimen as tolerated by patient. 2. Continue GI motility medications per MD to aid with constipation. Current tube feeding. 3. If constipation not resolved, consider modifying tube feeding formula to Fibersource due to increased fiber content. 75ml/hr x 20hours. 4. DIscontinue Oral supplement of Novasource Renal from diet order. Expected Outcomes/Goals Expected Outcomes/Goals Tube feeding meets nutrient needs with tolerance, weight stable or trends toward ideal body weight, nutrition related labs WNL. F/U MR
[2017-06-23] MEDS ORDERED: Potassium Chloride 20 mEq ER Tab PO PRN (09:22)
[2017-06-23] MEDS ORDERED: Mag Sulfate 2gm/50mL Premix 2 GM/50 ML BAG IV PRN (09:22)
== END 2017-06-23 12:45 | DRG 177 ==
LOC: ER 17:56 → TELE 20:38
PROVIDERS: ADMIT General Practice; ATTEND General Practice
DX: J69.0 Pneumonitis due to inhalation of food and vomit (principal); G82.50 Quadriplegia, unspecified; J96.10 Chronic respiratory failure, unspecified whether with hypoxia or hypercapnia; E46 Unspecified protein-calorie malnutrition; Z93.0 Tracheostomy status; R13.10 Dysphagia, unspecified; G40.909 Epilepsy, unspecified, not intractable, without status epilepticus; E03.9 Hypothyroidism, unspecified; E78.5 Hyperlipidemia, unspecified; E11.9 Type 2 diabetes mellitus without complications; M81.0 Age-related osteoporosis without current pathological fracture; I10 Essential (primary) hypertension; F32.9 Major depressive disorder, single episode, unspecified; D63.8 Anemia in other chronic diseases classified elsewhere; F41.1 Generalized anxiety disorder; N40.1 Benign prostatic hyperplasia with lower urinary tract symptoms; R33.8 Other retention of urine; B96.5 Pseudomonas (aeruginosa) (mallei) (pseudomallei) as the cause of diseases classified elsewhere; Z93.1 Gastrostomy status; Z79.4 Long term (current) use of insulin; Z74.01 Bed confinement status
CPT/HCPCS: 36415-UA; 71045-TC; 71250-TC; 80048-TC; 80053-TC; 80150-TC; 81001-TC; 82803-TC; 82948-90; 85025-TC; 86480-90; 86703-TC; 87086-90; 87116-90; 87206-90; 93005; 94640; 94664; 94760; J0278; J1644; J2543; J7030; X7704; Z7610